=== PATIENT | female | born 1950 | race Caucasian/White ===

== ENCOUNTER → 2016-07-15 | Outpatient (CLI) | payer MEDICARE, BC ==
[2016-07-15 08:59] LABS: Basophils # (A) 0.1 k/uL (0-0.2); Basophils % (A) 2 %; CH 32.5; CHCM 34.2; Eosinophils # (A) 0.1 k/uL (0-0.7); Eosinophils % (A) 2 %; HDW 2.38; HGB 15.5 gm/dL (11.4-16.0); Luc # (Auto) 0.14; Luc % (Auto) 2; Lymphocytes % (A) 25 %; MCH 31.5 pg (25.0-35.0); MCV 95.4 fL (80.0-100.0); Mean Platelet Volume 7.6; Monocytes # (A) 0.5 k/uL (0-1.0); Monocytes % (A) 6 %; Neutrophils # (A) 5.2 k/uL (1.3-7.7); Neutrophils % (A) 64 %; RBC 4.92 m/uL (3.80-5.40); RDW 11.9 % (11.5-15.5); WBC 8.1 k/uL (3.8-10.6); WBC (Perox) 8.55
[2016-07-15 09:20] LABS: ALT 36 U/L (9-52); AST 26 U/L (14-36); Alkaline Phosphatase 77 U/L (38-126); Anion Gap 12 mmol/L; Blood Urea Nitrogen 17 mg/dL (7-17); Calcium 10.3 mg/dL (8.4-10.2); Carbon Dioxide 25 mmol/L (22-30); Chloride 106 mmol/L (98-107); Cholesterol 214 mg/dL (<200); Glucose 91 mg/dL (74-99); HDL Cholesterol 48 mg/dL (40-60); Non-African American GFR(MDRD) >60 (>60 ml/min/1.73 sqM); Potassium 4.8 mmol/L (3.5-5.1); Sodium 143 mmol/L (137-145); Total Bilirubin 0.8 mg/dL (0.2-1.3); Total Protein 7.5 g/dL (6.3-8.2); Triglycerides 340 mg/dL (<150)
[2016-07-15 15:57] LABS: Hemoglobin A1C 5.2 % (4.2-6.1)
== END | disposition home or self-care (01) ==
LOC: LABWHC1 08:25
PROVIDERS: ATTEND Family Medicine
DX: E78.5 Hyperlipidemia, unspecified (principal); E55.9 Vitamin D deficiency, unspecified
CPT/HCPCS: 36415; 80053; 80061; 82306; 83036; 84439; 84443; 85025

== ENCOUNTER → 2016-08-21 | Outpatient (CLI) | payer MEDICARE, BC ==
--- NOTE | 2016-08-22 09:29 | MM ---
Reason for exam: screening (asymptomatic). Last mammogram was performed 1 year ago. History: Patient is postmenopausal. Benign cyst aspiration of the right breast, 1976. Physical Findings: A clinical breast exam by your physician is recommended on an annual basis and results should be correlated with mammographic findings. MG 3D Screening Mammo W/Cad Bilateral CC and MLO view(s) were taken. Prior study comparison: August 20, 2015, bilateral MG screening mammo w CAD. August 17, 2014, bilateral MG screening mammo w CAD. February 11, 2014, right breast MG diagnostic mammo RT w CAD. There are scattered fibroglandular densities. Finding: There are typically benign dystrophic, round calcifications in both breasts. There is no discrete abnormality. ASSESSMENT: Benign, BI-RAD 2 RECOMMENDATION: Routine screening mammogram of both breasts in 1 year.
== END ==
LOC: RADMAMWWP 08:00
PROVIDERS: ATTEND Family Medicine
DX: Z12.31 Encounter for screening mammogram for malignant neoplasm of breast (principal)
CPT/HCPCS: 77063; G0202

== ENCOUNTER → 2016-10-24 | Outpatient (CLI) | payer MEDICARE, BC ==
[2016-10-24 10:35] LABS: CH 32.9; CHCM 33.8; HCT 45.6 % (34.0-46.0); HDW 2.49; HGB 15.6 gm/dL (11.4-16.0); MCH 33.5 pg (25.0-35.0); MCHC 34.2 g/dL (31.0-37.0); MCV 97.9 fL (80.0-100.0); Mean Platelet Volume 8.1; RBC 4.66 m/uL (3.80-5.40); RDW 12.3 % (11.5-15.5); WBC 7.5 k/uL (3.8-10.6)
[2016-10-24 10:36] LABS: INR 1.1 (<1.1); Prothrombin Time 10.8 sec (9.0-12.0)
[2016-10-24 10:37] LABS: Appearance,Urine Cloudy (Clear); Bacteria,Urine Rare /hpf; Bilirubin,Urine Negative (Negative); Glucose,Urine (UA) Negative (Negative); Ketones,Urine Negative (Negative); Leukocyte Esterase,Urine Negative (Negative); Mucus,Urine Rare /hpf; Nitrite,Urine Negative (Negative); PH, Urine 5.5 (5.0-8.0); Particle Count 4167; Protein,Urine Trace (Negative); Specific Gravity,Urine 1.027 (1.001-1.035); Squamous Epithelial Cell,Urine 4 /hpf (0-4); UA Billing (MACRO vs. MICRO) MICRO; Urobilinogen,Urine <2.0 mg/dL (<2.0); WBC,Urine <1 /hpf (0-5)
[2016-10-24 10:39] LABS: ALT 31 U/L (9-52); AST 28 U/L (14-36); Alkaline Phosphatase 71 U/L (38-126); Anion Gap 11 mmol/L; Blood Urea Nitrogen 19 mg/dL (7-17); Calcium 10.2 mg/dL (8.4-10.2); Carbon Dioxide 24 mmol/L (22-30); Chloride 107 mmol/L (98-107); Glucose 79 mg/dL (74-99); Non-African American GFR(MDRD) >60 (>60 ml/min/1.73 sqM); Potassium 4.6 mmol/L (3.5-5.1); Sodium 142 mmol/L (137-145); Total Bilirubin 0.8 mg/dL (0.2-1.3); Total Protein 7.4 g/dL (6.3-8.2)
== END | disposition home or self-care (01) ==
LOC: LABPAT 09:50
PROVIDERS: ATTEND Orthopaedic Surgery Sports Medicine
DX: Z01.818 Encounter for other preprocedural examination (principal)
CPT/HCPCS: 80053; 81001; 85027; 85610; 85730; 87070

== ENCOUNTER 2016-11-16 09:23 | Inpatient (IN) | payer MEDICARE, BC ==
[2016-11-08 15:43] VITALS: BMI 36.6
[~2016-11-16 09:23] MED LIST: ACETAMINOPHEN TAB 500 MG TAB PO ONE; DEXAMETHASONE SOD PHOSPHATE 10 MG/ML 1 ML VIAL IV ONE; HYDROmorphone 1 MG/ML 1 ML SYRINGE IVP PRN; LIDOCAINE 1% 20 ML VIAL (10MG/ML) FOR IV START INTRADERMA PRN; MELOXICAM 7.5 MG TAB PO ONE; ONDANSETRON 4 MG/2 ML VIAL IVP ONE; ROPIVACAINE 246.25 MG, EPINEPHrine 0.5 MG, KETOROLAC 30 MG, cloNIDine HCL/PF 80 MCG, WA... MISCELLANE ONE; SCOPOLAMINE 1.5MG/72HR PATCH TRANSDERM ONE; TRANEXAMIC ACID 1,000 MG in SODIUM CHLORIDE 0.9% 100 ML IVPB ONE; ceFAZolin 2 GM in SODIUM CHLORIDE 0.9% 100 ML IVPB ONE
[2016-11-16] MEDS: LACTATED RINGERS 1,000 ML IV SCH ×4 (10:03→23:57)
[2016-11-16 10:57] LABS: Appearance,Urine Clear (Clear); Bilirubin,Urine Negative (Negative); Glucose,Urine (UA) Negative (Negative); Ketones,Urine Negative (Negative); Leukocyte Esterase,Urine Negative (Negative); Nitrite,Urine Negative (Negative); PH, Urine 5.5 (5.0-8.0); Protein,Urine Negative (Negative); Specific Gravity,Urine 1.022 (1.001-1.035); UA Billing (MACRO vs. MICRO) CHEM; Urobilinogen,Urine <2.0 mg/dL (<2.0)
[2016-11-16] MEDS ORDERED: PROPOFOL 10 MG/ML 20 ML VIAL IV ONE (11:02)
[2016-11-16] MEDS ORDERED: MORPHINE SULFATE (PF) 0.3 MG/0.3 ML SYR ONE (11:02)
[2016-11-16] MEDS ORDERED: LIDOCAINE 1% INJ 10MG/ML (20 ML MDV) ONE (11:02)
[2016-11-16] MEDS ORDERED: SODIUM CHLORIDE 0.9% 100 ML BAG ONE (11:02)
[2016-11-16] MEDS ORDERED: fentaNYL (PF) 50 MCG/ML 2 ML AMP ONE (11:02)
[2016-11-16] MEDS ORDERED: MIDAZOLAM 2 MG/2 ML VIAL ONE (11:02)
[2016-11-16] MEDS ORDERED: TRANEXAMIC ACID 1,000 MG/10 ML VIAL ONE (11:02)
[2016-11-16] MEDS ORDERED: ONDANSETRON 4 MG/2 ML VIAL ONE (11:02)
[2016-11-16] MEDS ORDERED: MAGNESIUM HYDROXIDE 2,400 MG/10 ML CUP PO PRN (11:26)
[2016-11-16] MEDS ORDERED: ONDANSETRON 4 MG/2 ML VIAL IVP PRN ×2 (11:26→14:14)
[2016-11-16] MEDS ORDERED: NA PHOS,M-B/NA PHOS,DI-BA 133 ML ENEMA RECTAL PRN (11:26)
[2016-11-16] MEDS ORDERED: HYDROcodone/APAP 7.5-325MG 1 EACH TAB PO PRN (11:26)
[2016-11-16] MEDS ORDERED: HYDROmorphone 1 MG/ML 1 ML SYRINGE IVP PRN ×3 (11:26)
[2016-11-16] MEDS ORDERED: TEMAZEPAM 15 MG CAP PO PRN (11:26)
[2016-11-16] MEDS ORDERED: BISACODYL 10 MG SUPP RECTAL PRN (11:26)
[2016-11-16] MEDS ORDERED: hydrOXYzine PAMOATE 25 MG CAP PO PRN (11:26)
[2016-11-16] MEDS ORDERED: ACETAMINOPHEN TAB 325 MG TAB PO PRN (11:26)
[2016-11-16] MEDS ORDERED: DIAZEPAM 5 MG TAB PO PRN (11:26)
[2016-11-16] MEDS ORDERED: NALOXONE 0.4 MG/ML 1 ML VIAL IV PRN ×2 (11:26→14:14)
[2016-11-16] MEDS ORDERED: ceFAZolin 3,000 MG in SODIUM CHLORIDE 0.9% IRRIGATIO 3,000 ML IRRIGATION ONE (11:42)
[2016-11-16] MEDS ORDERED: LACTATED RINGERS 1,000 ML IV ONE ×3 (11:55→13:02)
--- NOTE | 2016-11-16 13:54 | XR ---
EXAMINATION TYPE: XR knee limited RT DATE OF EXAM ORDERED: 11/16/2016 HISTORY: Right knee arthroplasty. COMPARISON: None. FINDINGS: A right knee arthroplasty has been performed. Prosthetic elements appear in good position. There is subcutaneous and intra-articular air. IMPRESSION: STATUS POST RIGHT ARTHROPLASTY.
[2016-11-16] MEDS ORDERED: MORPHINE SULFATE 4 MG/ML SYRINGE IVP PRN ×2 (14:14→23:13)
[2016-11-16] MEDS: diphenhydrAMINE 50 MG/ML 1 ML VIAL IVP PRN ×2 (17:42→23:03)
[2016-11-16] MEDS: ceFAZolin 2 GM in SODIUM CHLORIDE 0.9% 100 ML IVPB SCH (17:42)
[2016-11-16] MEDS ORDERED: WARFARIN 5 MG TAB PO ONE (18:00)
[2016-11-16] MEDS ORDERED: SENNOSIDES-DOCUSATE SODIUM 1 EACH TAB PO SCH (21:00)
[2016-11-16] MEDS ORDERED: ASPIRIN 325 MG TAB PO SCH (21:00)
[2016-11-16] MEDS ORDERED: MECLIZINE 12.5 MG TAB PO PRN (22:48)
[2016-11-16] MEDS ORDERED: ARTIFICIAL TEARS-HYPROMELLOSE DROPS 15 ML BTL BOTH EYES PRN (22:48)
[2016-11-16] MEDS ORDERED: MORPHINE SULFATE 2 MG/ML SYRINGE IVP PRN (22:58)
[2016-11-16] MEDS ORDERED: ATORVASTATIN 20 MG TAB PO SCH (23:00)
[2016-11-16] MEDS ORDERED: GABAPENTIN 300 MG CAP PO SCH (23:00)
[2016-11-16] MEDS ORDERED: PANTOPRAZOLE 40 MG TABLET PO SCH (23:00)
[2016-11-16] MEDS ORDERED: NADOLOL 20 MG TAB PO SCH (23:00)
[2016-11-17] MEDS: ceFAZolin 2 GM in SODIUM CHLORIDE 0.9% 100 ML IVPB SCH (03:15)
[2016-11-17] MEDS: HYDROcodone/APAP 7.5-325MG 1 EACH TAB PO PRN ×2 (05:42→11:02)
[2016-11-17] MEDS: LACTATED RINGERS 1,000 ML IV SCH (06:15)
[2016-11-17 07:38] LABS: INR 1.9 (<1.1); Prothrombin Time 18.7 sec (9.0-12.0)
--- NOTE | 2016-11-17 07:48 | OP ---
DATE OF SERVICE: 11/16/2016 SURGEON: KEL BELLO MD PATIENT SERVICES MANAGER: Brady Verde PA-C. PREOPERATIVE DIAGNOSIS: Right knee osteoarthrosis. POSTOPERATIVE DIAGNOSIS: Right knee osteoarthrosis. OPERATION: Right total knee arthroplasty. ANESTHESIA: Spinal with sedation. ESTIMATED BLOOD LOSS: 100 mL. Tourniquet time: 40 minutes at 250 mmHg. SPECIMENS REMOVED: COMPLICATIONS: None apparent. DRAINS: None. DISPOSITION: Postanesthesia care. INDICATIONS: Rosa Isela is a very pleasant 66-year-old female with long-standing history of right knee pain. History and physical examination are consistent with advanced right knee osteoarthrosis. She has been through significant nonoperative management up to this point. Further treatment options were discussed and she has decided to go forward with right total knee arthroplasty. The risks of the procedure were discussed with her in detail. These risks include, but are not limited to risk of infection, nerve damage, bleeding, pain, and a small risk of deep vein thrombosis, which could lead to fatal pulmonary embolism. There is also a risk of loosening of the implant, which could require revision operation. The patient understands these risks. All of her questions were answered to her satisfaction. Appropriate informed consent was obtained. DESCRIPTION OF PROCEDURE: Patient is identified in the preoperative holding area. Surgical site was marked by both the patient and myself. She was given 2 grams of Ancef IV for prophylactic purposes. Purchase then transferred to the operative suite where she was placed supine on the operating room table. Spinal anesthetic was then administered and dosed per the anesthesia department without apparent complication. Examination under anesthesia was then performed. Patient had full extension. She had 110 degrees of flexion. The medial collateral ligament, lateral collateral ligament and posterior cruciate ligaments were stable. Tourniquet was then placed high on the right upper thigh, well-padded in preparation for surgery. The patient's right lower extremity was then prepped and draped usual sterile fashion. Standard surgical pause was then undertaken to ensure that we were operating on correct site and that appropriate preoperative antibiotics had been given. All staff in the room were in agreement and we proceeded. The outlines of the patella were marked with surgical marked with a surgical pen. A planned 12 cm vertical incision centered over the patella was marked with a surgical pen. The leg was then exsanguinated with an Esmarch dressing. The knee was then flexed and the tourniquet was inflated to 250 mmHg. Total tourniquet time for the procedure was 40 minutes. Incision was then made with a 10 blade scalpel. Dissection was carried down sharply to the overlying fascia. Great care was taken to minimize the skin flaps. The knee was then exposed using a standard medial parapatellar approach. A small cuff of quadriceps tendon was then left for suturing. She was in a bit of valgus preoperatively. A very minimal medial release was then made. Just enough to up for placement of the retractors were put. The medial meniscus was then excised as well. The lateral meniscus was also released anteriorly. The leg was then externally rotated externally rotated. The patella was everted and the knee was flexed. Retractors were then placed to protect the collateral ligaments. I then proceeded to remove the infrapatellar fat pad. This was excised sharply tangentially, with the fibers of the patellar tendon. I then proceeded to remove the peripheral osteophytes. This was done with a rongeur. I then proceeded with the distal femoral resection. She did have near full extension. A planned 9 mm resection was then done. The femoral canal was then entered in midline of the femur approximately 10 mm anterior to the origin of the posterior cruciate ligament. The ayleen was then advanced down the center of the femur and placed intramedullary. Based on preoperative radiographs, the angle between the anatomic and mechanical axis of the femur was approximately 4 to 5 degrees. The valgus angle of the distal femoral cutting guide was then set at 4 degrees for the right knee. Distal femoral cutting guide was then advanced over the intramedullary ayleen. This was seated firmly against the femur. I then, as mentioned, planned to take 9 mm off the distal femur. The cutting block was then secured onto the femur with pins. Jig was then removed. The distal femoral cut was made through the slot of the block. The pins were then removed. The distal femoral cutting block was removed. The accuracy of the distal femoral cuts was checked with 2 flat bars. I then proceeded with femoral sizing. The posterior referencing sizing guide was held firmly against the resected distal surface of the femur. Posterior condyles were resting on the posterior plane of the guide. The sizing stylus was then advanced and placed onto the anterior femur. The size was measured at a size 4. I then assessed for femoral rotation. Plan was for 3 degrees of external rotation. The 3 degrees of external placed rotation was placed onto the jig. These holes were then marked. I then confirmed the rotation by 3 separate methods. This was done using epicondylar axis as well as Whitesides line and posterior referencing. It was deemed that the external rotation was proper. I then went forward placing the femoral cutting block. This was placed over the previously placed pinholes. Robson wing was then placed onto the anterior slots to ensure that we would not notch the anterior femur with the anterior femoral cut. I then proceeded with the anterior femoral cut. This was flush with the anterior cortex of the femur. Posterior cuts were then made followed by the anterior chamfer cut and then the posterior chamfer cut. The cutting block was then removed. Throughout the resection, the collateral ligaments were protected with retractors. I then placed a trial size 4 femur. It fit very nice medial to lateral and fit flush with the distal end of the femur. The drill holes were then made. I then proceeded with the tibial cut planned for a cruciate-retaining knee. The guide was then placed and set for varus valgus and for slope. The height was set for an approximately 2 mm resection from the lateral tibial plateau, which was the lower side. I was happy with the alignment and the amount of resection. The cutting block was then pinned to the proximal tibia. The alignment ayleen was removed and the proximal tibia was resected with the reciprocating saw. Again, this was done with retractors, protecting the collateral ligaments as well as posterior cruciate ligament. I then proceeded to evaluate the flexion and extension gaps. A 10 mm block was placed. Flexion and extension gaps were equal. I then proceeded with resection of the posterior osteophytes. She had very minimal posterior osteophytes. This was done with a curved osteotome. This resected the posterior osteophytes and posterior capsule stripping was also done off the posterior aspect of the femur at this time. The osteophytes were then removed. I then proceeded with resection of the patella. The thickness of the patella was measured using the caliper. The thickness was 22 mm. The thickness of the anticipated patellar dome was taken into account. Resection was then performed and confirmed to be equal in 4 quadrants using the caliper approximately 14 mm of bone remained. After the resection, a straight 29 x 9 standard patellar trial was then placed. Holes were then drilled and trial was then placed. I then proceeded with sizing the tibial plate. A size 3 tibial plate fit very nicely. I then placed a trial. Femur, the tibial tray and patellar button. A 10 mm trial tibial insert was also placed. The components fit very nicely. She had full flexion and extension. The extension and flexion gaps were equal and stable to both varus and valgus stress. The patellar tracked appropriately. The tibial tray rotation was marked with a Bovie. This was externally rotated properly. I then proceeded with tibial preparation. I first drilled femoral holes and removed femoral component. The tibial tray was then set for proper external rotation as well as medial and lateral placement onto the tibial. It was then pinned into place. I then proceeded with punching the keel. I then decided to proceed with cementing al components. The knee was thoroughly irrigated with sterile saline solution via pulse lavage. The lateral geniculate artery was identified and cauterized. All blood was removed from the bone of the tibia, femur, patella with pulse lavage. I then proceeded with cementing. Two packs of antibiotic bone cement were created on the back table by the neurosurgical physician assistant. I then proceeded with cementing of the tibia first. The cement was impacted in the keel as well as deeply seated into the bone. A second coat of cement was then placed. The tibia was then impacted and placed. Excess cement was removed with Clinton's and jokers. I then proceed with cementing the femoral component. The femoral component was also cemented using standard technique. Excess cement was removed. A 9 mm trial insert was then placed into the knee. It was brought into full extension with ( ) place until the cement had hardened. Patellar component was then cemented. This was held firmly with compressive device until the cement had dried. Once the cement had dried, the knee was taken out of extension. I trialed the knee with 9 mm insert. Flexion, extension gaps were appropriate. The knee was stable. It came in full extension. I decided to go forward with a 9 mm cross link cruciate retaining tibial insert. Polyethylene was then placed on the tibial tray and locked. The knee was then reduced. The knee was again further irrigated with sterile saline solution with antibiotic added. The tourniquet was then deflated. The total tourniquet time for the procedure was 40 minutes at 250 mmHg. Final components were a [employer] Oxinium size 4 cruciate-retaining femoral component, a size 3 tibial tray, a 9 mm cruciate-retaining polyethylene insert and a 29 x 9 mm patella. I then proceeded with closure. Again, the knee was thoroughly irrigated. The quadriceps tendon and the medial retinaculum were reapproximated with #2 Ethibond suture. The extensor mechanism was then closed with running #2 Quill suture. Subcutaneous tissues were then closed with 2-0 Vicryl interrupted suture. Skin was closed with a running 3-0 Quill suture. Dermabond was applied to the incision. Sterile compressive dressings were then applied. All sponge and needle counts were deemed correct prior to closure. The patient tolerated the procedure without apparent complication. She was transferred to recovery room in stable condition.
[2016-11-17 07:50] LABS: Basophils % (A) 0 %; CH 33.1; CHCM 33.5; Eosinophils % (A) 0 %; HCT 36.1 % (34.0-46.0); HDW 2.28; Luc # (Auto) 0.25; Luc % (Auto) 2; Lymphocytes # (A) 2.9 k/uL (1.0-4.8); Lymphocytes % (A) 24 %; MCH 32.6 pg (25.0-35.0); MCHC 32.9 g/dL (31.0-37.0); MCV 99.2 fL (80.0-100.0); Mean Platelet Volume 7.2; Monocytes # (A) 0.9 k/uL (0-1.0); Monocytes % (A) 8 %; Neutrophils # (A) 7.9 k/uL (1.3-7.7); Neutrophils % (A) 66 %; RBC 3.64 m/uL (3.80-5.40); RDW 12.7 % (11.5-15.5); WBC (Perox) 12.57
[2016-11-17 08:04] LABS: HGB 11.9 gm/dL (11.4-16.0)
--- NOTE | 2016-11-17 08:26 | P.CONS ---
History of Present Illness - Reason for Consult Consult date: 11/17/16 Requesting physician: Carlos Kaplan - Chief Complaint Knee DJD. - History of Present Illness This is a consult note on a 66-year-old white female, who is very well-known to our practice with underlying history of hypertension and fibromyalgia who is essentially postop day #1 for right knee arthroplasty. The patient is doing quite well. No significant chest pain or shortness of breath. Blood pressure is nominal. No fever or chills are stated. Medications were reconciled. Review of Systems Constitutional: Denies chills, Denies fever Eyes: denies blurred vision, denies pain Ears, nose, mouth and throat: Denies headache, Denies sore throat Cardiovascular: Denies chest pain, Denies shortness of breath Respiratory: Denies cough Gastrointestinal: Denies abdominal pain, Denies diarrhea, Denies nausea, Denies vomiting Musculoskeletal: Reports as per HPI Musculoskeletal: right: knee pain Integumentary: Denies pruritus, Denies rash Neurological: Denies numbness, Denies weakness Psychiatric: Denies anxiety, Denies depression Past Medical History Past Medical History: Fibromyalgia, GERD/Reflux, Osteoarthritis (OA) Additional Past Medical History / Comment(s): OCCASIONAL VERTIGO, MITRAL VALVE PROLAPSE (PRE-MEDICATES FOR DENTAL PROCEDURES), ENVIRONMENTAL ALLERGIES, IBS, DIVERTICULOSIS, BACK PAIN WITH EPIDURAL INJECTIONS (LAST APR 2016), OVER-ACTIVE BLADDER. , DRY EYES., USES CANE PRN., STATES PRESCRIPTION FOR BACTRIM FOR BACTERIA IN URINE FROM DR KAPLAN'S OFFICE History of Any Multi-Drug Resistant Organisms: None Reported Past Surgical History: Appendectomy, Section, Hysterectomy, Orthopedic Surgery Additional Past Surgical History / Comment(s): VAGINAL CYST, D & C , COURTNEY, SHAWNEE ROTATOR CUFF, TRABECULOPLASTY EYE SURGERY FOR GLAUCOMA, SHAWNEE CATARACTS & LAZER EYE SURGERY , LEFT TRIGGER THUMB, ARTHROSCOPY LEFT KNEE, EYE LID PTOSIS SURGERY , COLONOSCOPY , EPIDURAL INJECTIONS AND RADIOFREQUENCY BACK PROCEDURES. Past Anesthesia/Blood Transfusion Reactions: Motion Sickness, Postoperative Nausea & Vomiting (PONV) Past Psychological History: No Psychological Hx Reported Smoking Status: Never smoker Past Alcohol Use History: Rare Past Drug Use History: None Reported - Past Family History Daughter(s) Family Medical History: Cancer Additional Family Medical History / Comment(s): MELANOMA Medications and Allergies Home Medications Medication Instructions Recorded Confirmed Type Ascorbic Acid [Vitamin C] 500 mg PO DAILY 11/08/16 11/16/16 History Atorvastatin [Lipitor] 20 mg PO HS 11/08/16 11/16/16 History Morales/D3/Mag11/Zinc/Commissary Officer/Damien/Bor 1 tab PO DAILY 11/08/16 11/16/16 History [Caltrate 600+D Plus Tablet] Carisoprodol [Soma] 175 mg PO TID 11/08/16 11/16/16 History Cetirizine HCl [Zyrtec] 10 mg PO DAILY 11/08/16 11/16/16 History Cholecalciferol [Vitamin D3] 5,000 unit PO DAILY 11/08/16 11/16/16 History FLUoxetine HCL [PROzac] 20 mg PO DAILY 11/08/16 11/16/16 History Fluticasone Nasal [place] [Flonase 1 spray EA NOSTRIL DAILY 11/08/16 11/16/16 History Nasal [place]] Gabapentin [Neurontin] 300 mg PO HS 11/08/16 11/16/16 History HYDROcodone/APAP 7.5-325MG [[place] 0.5 tab PO Q6HR PRN 11/08/16 11/16/16 History 7.5-325] Ibuprofen [Motrin] 800 mg PO BID PRN 11/08/16 11/16/16 History Lubricant Eye Drops 1 drop BOTH EYES BID PRN 11/08/16 11/16/16 History Meclizine [Antivert] 12.5 mg PO BID PRN 11/08/16 11/16/16 History Menthol [Biofreeze] 1 applic TOPICAL DAILY PRN 11/08/16 11/16/16 History Multivit-Min/FA/Lycopen/Lutein 1 tab PO DAILY 11/08/16 11/16/16 History [Centrum Silver Tablet] Nadolol [Corgard] 20 mg PO HS 11/08/16 11/16/16 History Omeprazole [PriLOSEC] 20 mg PO HS 11/08/16 11/16/16 History Vitamin E (Dl,Tocopheryl Acet) 400 unit PO DAILY 11/08/16 11/16/16 History [Vitamin E] Warfarin [Coumadin] 2.5 mg PO DAILY 11/16/16 11/16/16 History Warfarin [Coumadin] 7.5 mg PO ONCE 11/16/16 11/16/16 History Allergies Allergy/AdvReac Type Severity Reaction Status Date / Time adhesive Allergy Unknown Red Verified 11/16/16 09:42 irritated skin with ekg electrodes. adhesive tape Allergy Unknown Red Verified 11/16/16 09:42 irritated skin nickel Allergy Unknown Rash/Hives Verified 11/16/16 09:42 strawberry Allergy Unknown Tongue and Verified 11/16/16 09:42 lips feel picky titanium Allergy Unknown Rash/Hives Verified 11/16/16 09:42 Physical Exam Vitals: Vital Signs Temp Pulse Pulse Pulse Resp BP Pulse Ox 11/17/16 02:51 97.4 F L 80 16 126/58 97 11/16/16 23:28 79 126/76 11/16/16 20:15 98.1 F 78 16 129/74 94 L 11/16/16 19:36 16 11/16/16 16:15 74 148/80 11/16/16 16:00 66 144/84 11/16/16 15:45 67 143/83 11/16/16 15:30 72 155/125 11/16/16 15:15 62 146/73 11/16/16 15:00 64 148/82 11/16/16 14:45 67 141/85 11/16/16 14:30 62 136/91 11/16/16 14:15 97.2 F L 62 16 140/90 94 L 11/16/16 14:14 94 L 11/16/16 14:00 56 L 18 143/73 93 L 11/16/16 13:45 59 L 18 143/70 95 11/16/16 13:30 61 18 147/72 97 11/16/16 13:24 97.3 F L 67 12 147/72 97 11/16/16 09:57 98.3 F 70 16 187/91 96 Intake and Output 11/16/16 11/17/16 11/17/16 22:59 06:59 14:59 Intake Total 400 100 Output Total 500 100 Balance 400 -400 -100 Intake: IV 400 100 Lactated Ringers 1,000 ml 400 @ 100 mls/hr IV .Q10H ALEXSANDRA Rx#:[id number] ceFAZolin 2 gm In Sodium 100 Chloride 0.9% 100 ml @ 100 mls/hr IVPB Q8H ALEXSANDRA Rx#:[id number] Output: Urine 500 100 Uretheral ([place]) 100 Other: Voiding Method Indwelling Catheter - Constitutional General appearance: obese - EENT Eyes: EOMI - Neck Neck: no lymphadenopathy - Respiratory Respiratory: bilateral: CTA - Cardiovascular Rhythm: regular Heart sounds: normal: S1, S2 - Gastrointestinal General gastrointestinal: soft, no tenderness - Integumentary Integumentary: no cellulitis - Neurologic Neurologic: CNII-XII intact - Psychiatric Psychiatric: A&O x's 3, appropriate affect Results CBC & Chem 7: 11/17/16 07:02 Labs: Abnormal Lab Results - Last 24 Hours (Table) 11/17/16 11/17/16 Range/Units 07:02 07:02 WBC 12.0 H (3.8-10.6) k/uL RBC 3.64 L (3.80-5.40) m/uL Neutrophils # 7.9 H (1.3-7.7) k/uL PT 18.7 H (9.0-12.0) sec Assessment and Plan (1) Osteoarthritis of right knee Status: Acute (2) Fibromyalgia Status: Acute (3) Hypertension Status: Acute Plan: Reconcile home medications. Watch vital signs closely. Anticoagulation and pain control via surgery. Discharge when cleared by surgery. Anticipate discharge in next [address] Garcia's group will be covering for the weekend. Time with Patient: Less than 30
--- NOTE | 2016-11-17 08:41 | P.PN ---
Progress Note - Text Date: 11-17-16 Time: 712 The patient is status post, total right knee arthroplasty Vital signs stable VAS: 3-10 The patient incurred some minimal itching yesterday, this itching is now subsiding. Pain meds to be managed by service.
[2016-11-17] MEDS ORDERED: ASCORBIC ACID 500 MG TAB PO SCH (09:00)
[2016-11-17] MEDS ORDERED: CARISOPRODOL 350 MG TAB PO SCH (09:00)
[2016-11-17] MEDS ORDERED: LORATADINE 10 MG TAB PO SCH (09:00)
[2016-11-17] MEDS ORDERED: CALCIUM CARB-VIT D 500MG-200UN 1 EACH TAB PO SCH (09:00)
[2016-11-17] MEDS ORDERED: FLUTICASONE 50MCG/SPRAY NASAL 16GM EA NOSTRIL SCH (09:00)
[2016-11-17] MEDS ORDERED: VITAMIN E (DL,TOCOPHERYL ACET) 400 UNIT CAP PO SCH (09:00)
[2016-11-17] MEDS ORDERED: CHOLECALCIFEROL 1,000 UNIT TAB PO SCH (09:00)
[2016-11-17] MEDS ORDERED: FLUoxetine HCL 20 MG CAP PO SCH (09:00)
[2016-11-17] MEDS ORDERED: NON-FORMULARY DRUG (Multivit-Min/Fa/Lycopen/Lutein [Centrum Silver Tablet] 1 TAB) PO SCH (09:00)
[2016-11-17 10:14] VITALS: BP 116/60; PULSE 63; RESP 14; TEMP 97.6
--- NOTE | 2016-11-17 11:28 | P.DS ---
Providers Date of admission: 11/16/16 09:23 Expected date of discharge: 11/17/16 Attending physician: Carlos Kaplan Consults: 11/16/16 11:30 Consult Physician Routine Consulting Provider: Yunior Melendez Consult Reason/Comments: post op medical management Do you want consulting provider notified?: Yes Primary care physician: Yunior Melendez - Discharge Diagnosis(es) (1) Osteoarthritis of right knee Patient was admitted to the OR on 11/16/2016 to undergo right total knee arthroplasty per Dr. Kaplan. She had failed conservative measures as an outpatient and desired to proceed with elective surgery after given informed consent. She underwent the above procedure which she tolerated well without complication. Her postoperative hospital course has remained without complication. On day of discharge she is afebrile, vital signs stable, labs within acceptable ranges, wound is benign, neurovascular status intact with motor and sensation throughout the right lower extremity, calf is soft and nontender, abdomen is soft and nontender, 2+ dorsalis pedis pulse and less than 2 second cap refill is present. She denies any new complaints, tolerating by mouth meds and diet, voiding without difficulty and positive flatus. Review of systems is negative for fever, chills, chest pain, shortness breath, nausea, vomiting, dizziness, headaches, slurred speech, abdominal pain, calf pain, numbness, tingling or other. Current Visit: Yes Status: Acute Priority: Medium Procedures: Right total knee arthroplasty Patient Condition at Discharge: Good Plan - Discharge Summary New Discharge Prescriptions: New Docusate [Colace] 100 mg PO BID #60 capsule HYDROcodone/APAP 7.5-325MG [[place] 7.5-325] 1 - 2 each PO Q6HR PRN #90 tab PRN Reason: Pain No Action Cholecalciferol [Vitamin D3] 5,000 unit PO DAILY Ascorbic Acid [Vitamin C] 500 mg PO DAILY Vitamin E (Dl,Tocopheryl Acet) [Vitamin E] 400 unit PO DAILY Omeprazole [PriLOSEC] 20 mg PO HS Nadolol [Corgard] 20 mg PO HS Fluticasone Nasal [place] [Flonase Nasal [place]] 1 spray EA NOSTRIL DAILY FLUoxetine HCL [PROzac] 20 mg PO DAILY Cetirizine HCl [Zyrtec] 10 mg PO DAILY Atorvastatin [Lipitor] 20 mg PO HS Meclizine [Antivert] 12.5 mg PO BID PRN PRN Reason: Vertigo Gabapentin [Neurontin] 300 mg PO HS Multivit-Min/FA/Lycopen/Lutein [Centrum Silver Tablet] 1 tab PO DAILY Menthol [Biofreeze] 1 applic TOPICAL DAILY PRN PRN Reason: Pain Lubricant Eye Drops 1 drop BOTH EYES BID PRN PRN Reason: Dry Eye(S) Ibuprofen [Motrin] 800 mg PO BID PRN PRN Reason: Pain Morales/D3/Mag11/Zinc/Communication Spec/Damien/Bor [Caltrate 600+D Plus Tablet] 1 tab PO DAILY Carisoprodol [Soma] 175 mg PO TID HYDROcodone/APAP 7.5-325MG [[place] 7.5-325] 0.5 tab PO Q6HR PRN PRN Reason: Pain Warfarin [Coumadin] 7.5 mg PO ONCE Warfarin [Coumadin] 2.5 mg PO DAILY Discharge Medication List Ascorbic Acid [Vitamin C] 500 mg PO DAILY 11/08/16 [History] Atorvastatin [Lipitor] 20 mg PO HS 11/08/16 [History] Morales/D3/Mag11/Zinc/Communication Spec/Damien/Bor [Caltrate 600+D Plus Tablet] 1 tab PO DAILY 11/08 [History] Carisoprodol [Soma] 175 mg PO TID 11/08/16 [History] Cetirizine HCl [Zyrtec] 10 mg PO DAILY 11/08/16 [History] Cholecalciferol [Vitamin D3] 5,000 unit PO DAILY 11/08/16 [History] FLUoxetine HCL [PROzac] 20 mg PO DAILY 11/08/16 [History] Fluticasone Nasal [place] [Flonase Nasal [place]] 1 spray EA NOSTRIL DAILY 11/08/16 [History] Gabapentin [Neurontin] 300 mg PO HS 11/08/16 [History] HYDROcodone/APAP 7.5-325MG [[place] 7.5-325] 0.5 tab PO Q6HR PRN 11/08/16 [History ] Ibuprofen [Motrin] 800 mg PO BID PRN 11/08/16 [History] Lubricant Eye Drops 1 drop BOTH EYES BID PRN 11/08/16 [History] Meclizine [Antivert] 12.5 mg PO BID PRN 11/08/16 [History] Menthol [Biofreeze] 1 applic TOPICAL DAILY PRN 11/08/16 [History] Multivit-Min/FA/Lycopen/Lutein [Centrum Silver Tablet] 1 tab PO DAILY 11/08/16 [ History] Nadolol [Corgard] 20 mg PO HS 11/08/16 [History] Omeprazole [PriLOSEC] 20 mg PO HS 11/08/16 [History] Vitamin E (Dl,Tocopheryl Acet) [Vitamin E] 400 unit PO DAILY 11/08/16 [History] Warfarin [Coumadin] 2.5 mg PO DAILY 11/16/16 [History] Warfarin [Coumadin] 7.5 mg PO ONCE 11/16/16 [History] Docusate [Colace] 100 mg PO BID #60 capsule 11/17/16 [Rx] HYDROcodone/APAP 7.5-325MG [[place] 7.5-325] 1 - 2 each PO Q6HR PRN #90 tab [Rx] Follow up Appointment(s)/Referral(s): Carlos Kaplan MD [STAFF PHYSICIAN] - 10 Days Ambulatory/Diagnostic Orders: Prothrombin Time INR [LAB.AMB] Location: Determined By Patient Activity/Diet/Wound Care/Special Instructions: Keep wound clean and dry May shower in 48 hours Weight-bear as tolerated Follow up with Dr. Kaplan in office Take meds as directed Discharge Disposition: HOME WITH HOME HEALTH SERVICES
[2016-11-17] MEDS ORDERED: MULTIVITAMINS, THERA 1 EACH TAB PO SCH (12:00)
[2016-11-17] MEDS ORDERED: WARFARIN 5 MG TAB PO ONE (18:00)
== END 2016-11-17 13:42 | disposition home health service (06) | DRG 470 ==
LOC: 2ORMAIN 09:23 → 3SUR 13:24
PROVIDERS: ADMIT Orthopaedic Surgery Sports Medicine; ATTEND Orthopaedic Surgery Sports Medicine
PROC: 0SRC0J9 Replacement of Right Knee Joint with Synthetic Substitute, Cemented, Open Approach (ICD-10-PCS; principal; 2016-11-16 11:00)
DX: M17.11 Unilateral primary osteoarthritis, right knee (principal); M06.9 Rheumatoid arthritis, unspecified; I10 Essential (primary) hypertension; H40.9 Unspecified glaucoma; I34.1 Nonrheumatic mitral (valve) prolapse; K21.9 Gastro-esophageal reflux disease without esophagitis; K58.9 Irritable bowel syndrome, unspecified; M79.7 Fibromyalgia; N32.81 Overactive bladder; Z79.01 Long term (current) use of anticoagulants; Z79.899 Other long term (current) drug therapy; E78.5 Hyperlipidemia, unspecified; M85.80 Other specified disorders of bone density and structure, unspecified site; H04.129 Dry eye syndrome of unspecified lacrimal gland
CPT/HCPCS: 81003; 85025; 85610; 88300

== ENCOUNTER → 2016-12-05 | Outpatient (CLI) | payer MEDICARE, BC ==
[2016-12-05 11:17] LABS: INR 1.5 (<1.1); Prothrombin Time 14.8 sec (9.0-12.0)
== END | disposition home or self-care (01) ==
LOC: LABWHC1 10:21
PROVIDERS: ATTEND Physician Assistant
DX: Z51.81 Encounter for therapeutic drug level monitoring (principal); Z79.01 Long term (current) use of anticoagulants
CPT/HCPCS: 36415; 85610

== ENCOUNTER → 2017-08-11 | Outpatient (CLI) | payer MEDICARE, BC ==
[2017-08-11 09:12] LABS: HCT 45.2 % (34.0-46.0); HGB 14.6 gm/dL (11.4-16.0); MCH 31.3 pg (25.0-35.0); MCHC 32.2 g/dL (31.0-37.0); MCV 97.1 fL (80.0-100.0); Mean Platelet Volume 6.9; Platelet Count 318 k/uL (150-450); RBC 4.65 m/uL (3.80-5.40); RDW 12.1 % (11.5-15.5); WBC 7.4 k/uL (3.8-10.6)
[2017-08-11 09:35] LABS: ALT 35 U/L (9-52); AST 27 U/L (14-36); Albumin 4.2 g/dL (3.5-5.0); Alkaline Phosphatase 66 U/L (38-126); Anion Gap 10 mmol/L; Blood Urea Nitrogen 17 mg/dL (7-17); Calcium 10.2 mg/dL (8.4-10.2); Carbon Dioxide 28 mmol/L (22-30); Chloride 104 mmol/L (98-107); Cholesterol 231 mg/dL (<200); Glucose 88 mg/dL (74-99); HDL Cholesterol 54 mg/dL (40-60); LDL Cholesterol,Calculated 127 mg/dL (0-99); Potassium 4.8 mmol/L (3.5-5.1); Sodium 142 mmol/L (137-145); Total Bilirubin 0.8 mg/dL (0.2-1.3); Total Protein 6.9 g/dL (6.3-8.2); Triglycerides 248 mg/dL (<150)
[2017-08-11 09:49] LABS: T4, Free (Free Thyroxine) 1.27 ng/dL (0.78-2.19)
== END | disposition home or self-care (01) ==
LOC: LABWHC1 08:28
PROVIDERS: ATTEND Family Medicine
DX: E78.5 Hyperlipidemia, unspecified (principal)
CPT/HCPCS: 36415; 80053; 80061; 84439; 84443; 85027

== ENCOUNTER → 2017-08-31 | Outpatient (CLI) | payer MEDICARE, BC ==
--- NOTE | 2017-09-03 13:19 | MM ---
Reason for exam: screening (asymptomatic). Last mammogram was performed 1 year ago. History: Patient is postmenopausal. Benign cyst aspiration of the right breast, 1976. Physical Findings: A clinical breast exam by your physician is recommended on an annual basis and results should be correlated with mammographic findings. MG 3D Screening Mammo W/Cad Bilateral CC and MLO view(s) were taken. Prior study comparison: August 21, 2016, bilateral MG 3d screening mammo w/cad. August 20, 2015, bilateral MG screening mammo w CAD. There are scattered fibroglandular densities. Finding: There are typically benign calcifications in both breasts. No suspicious abnormality. No significant changes in finding since August 21, 2016. ASSESSMENT: Benign, BI-RAD 2 RECOMMENDATION: Routine screening mammogram of both breasts in 1 year.
== END | disposition home or self-care (01) ==
LOC: RADMAMWWP 07:44
PROVIDERS: ATTEND Family Medicine
DX: Z12.31 Encounter for screening mammogram for malignant neoplasm of breast (principal)
CPT/HCPCS: 77063; 77067

== ENCOUNTER → 2018-06-20 | Outpatient (CLI) | payer MEDICARE ==
[2018-06-20 09:15] LABS: Basophils # (A) 0.1 k/uL (0-0.2); Basophils % (A) 1 %; Eosinophils # (A) 0.1 k/uL (0-0.7); Eosinophils % (A) 2 %; HGB 14.8 gm/dL (11.4-16.0); Lymphocytes # (A) 2.1 k/uL (1.0-4.8); Lymphocytes % (A) 33 %; MCH 32.5 pg (25.0-35.0); MCHC 33.6 g/dL (31.0-37.0); MCV 96.9 fL (80.0-100.0); Mean Platelet Volume 7.5; Monocytes # (A) 0.5 k/uL (0-1.0); Monocytes % (A) 8 %; Neutrophils # (A) 3.3 k/uL (1.3-7.7); Neutrophils % (A) 52 %; Platelet Count 261 k/uL (150-450); RBC 4.53 m/uL (3.80-5.40); RDW 12.2 % (11.5-15.5); WBC 6.2 k/uL (3.8-10.6)
[2018-06-20 17:15] LABS: Albumin 4.3 g/dL (3.80-4.90); Albumin/Globulin Ratio 2.39 (1.20-2.10); Calcium 9.6 mg/dL (8.7-10.3); Globulin 1.8 g/dL (1.6-3.3); LDL Cholesterol,Calculated 109.2 mg/dL (0.0-131.0); Potassium 4.3 mmol/L (3.5-5.5); Total Bilirubin 0.5 mg/dL (0.2-1.2); Total Protein 6.1 g/dL (6.2-8.2); VLDL Calculation 59.8 mg/dL (5.00-40.00)
== END ==
LOC: LABWHC1 07:41
PROVIDERS: ATTEND Family Medicine
DX: E78.5 Hyperlipidemia, unspecified (principal); M06.9 Rheumatoid arthritis, unspecified; K21.9 Gastro-esophageal reflux disease without esophagitis; Z79.899 Other long term (current) drug therapy
CPT/HCPCS: 36415; 80053; 80061; 82306; 85025

== ENCOUNTER → 2018-09-02 | Outpatient (CLI) | payer MEDICARE ==
--- NOTE | 2018-09-03 11:09 | MM ---
Reason for exam: screening (asymptomatic). Last mammogram was performed 1 year ago. History: Patient is postmenopausal. Benign cyst aspiration of the right breast, 1976. Physical Findings: A clinical breast exam by your physician is recommended on an annual basis and results should be correlated with mammographic findings. MG 3D Screening Mammo W/Cad Bilateral CC and MLO view(s) were taken. Prior study comparison: August 31, 2017, bilateral MG 3d screening mammo w/cad. August 21, 2016, bilateral MG 3d screening mammo w/cad. The breast tissue is heterogeneously dense. This may lower the sensitivity of mammography. Benign appearing bilateral calcifications. No suspicious abnormality. No significant changes when compared with prior studies. ASSESSMENT: Benign, BI-RAD 2 RECOMMENDATION: Routine screening mammogram of both breasts in 1 year.
== END | disposition home or self-care (01) ==
LOC: RADMAMWWP 08:19
PROVIDERS: ATTEND Family Medicine
DX: Z12.31 Encounter for screening mammogram for malignant neoplasm of breast (principal)
CPT/HCPCS: 77063; 77067

== ENCOUNTER 2019-02-05 11:12 | Emergency (ER) | payer MEDICARE ==
--- NOTE | 2019-02-05 11:22 | US ---
EXAMINATION TYPE: US venous doppler duplex LE LT DATE OF EXAM: 02/05/2019 10:53 AM COMPARISON: NONE CLINICAL HISTORY: I80.9 Phlebitis and Thrombophlebitis. SIDE PERFORMED: Left TECHNIQUE: The lower extremity deep venous system is examined utilizing real time linear array sonog [place] with graded compression, doppler sonography and color-flow sonography. VESSELS IMAGED: External Iliac Vein (EIV) Common Femoral Vein Deep Femoral Vein Greater Saphenous Vein * Femoral Vein Popliteal Vein Small Saphenous Vein * Proximal Calf Veins (* superficial vessels) Abnormal luminal echoes noted within the common femoral vein on the left, there is a lack of color fl ow present, some minimal eccentric wall is present. Low level internal echoes noted within the femora l vein, there is lack of color flow and vascular waveforms. There is a lack of compressibility in the common femoral and femoral and popliteal veins extending to the deep veins in the calf. Left Leg: Positive for DVT from the left CFV to the left proximal calf veins. Left SVT in the small saphenous vein IMPRESSION: Deep venous thrombosis from the calf veins to the level of the common femoral vein A Red level critical message alert has been initiated for Adin Oliva via the [employer] System on 02/05/2019 11:19 AM. This message alert has been sent to Adin conde the preferences provided by the clinician for the receipt of Radiology Critical Findings. Message I D [id number].
--- NOTE | 2019-02-05 12:05 | ED ---
Recheck HPI - General Chief Complaint: Recheck/Abnormal Lab/Rx Stated Complaint: DVT Time Seen by Provider: 02/05/19 11:20 Source: patient, family, RN notes reviewed, old records reviewed Mode of arrival: wheelchair Limitations: no limitations - History of Present Illness Initial Comments: This is a 68-year-old female the ER for evaluation. This patient presents today for evaluation of leg pain, outpatient Positive for DVT patient has no ALLERGIES no recent surgeries recent travel history denies chest pain or shortness of breath patient is aware that she had DVT of left lower extremity MD Complaint: other (Patient had outpatient ultrasound showing positive DVT) -: unknown Returns Today for: Called Because of Abnormal Lab/Test (Called because of abnormal outpatient study) Symptoms Since Prior Visit: worsening pain Context: other (Positive outpatient ultrasound for DVT) - Related Data Home Medications Medication Instructions Recorded Confirmed Ascorbic Acid [Vitamin C] 500 mg PO DAILY 11/08/16 02/05/19 Atorvastatin [Lipitor] 20 mg PO HS 11/08/16 02/05/19 Carisoprodol [Soma] 350 mg PO TID 11/08/16 02/05/19 Cetirizine HCl [Zyrtec] 10 mg PO DAILY 11/08/16 02/05/19 Cholecalciferol [Vitamin D3 (25 2,000 unit PO DAILY 11/08/16 02/05/19 Mcg = 1000 Iu)] FLUoxetine HCL [PROzac] 20 mg PO DAILY 11/08/16 02/05/19 Gabapentin [Neurontin] 300 mg PO HS 11/08/16 02/05/19 Lubricant Eye Drops 1 drop BOTH EYES BID PRN 11/08/16 02/05/19 Nadolol [Corgard] 20 mg PO HS 11/08/16 02/05/19 Omeprazole [PriLOSEC] 20 mg PO HS 11/08/16 02/05/19 Vitamin E (Dl,Tocopheryl Acet) 400 unit PO DAILY 11/08/16 02/05/19 [Vitamin E] Acetaminophen [Tylenol Arthritis] 650 mg PO BID PRN 02/05/19 02/05/19 Ibuprofen [Motrin] 800 mg PO DAILY 02/05/19 02/05/19 Montelukast [Singulair] 10 mg PO HS 02/05/19 02/05/19 Vitamin B Complex 2 cap PO DAILY 02/05/19 02/05/19 traMADol HCL [Ultram] 50 mg PO BID PRN 02/05/19 02/05/19 Previous Rx's Medication Instructions Recorded Apixaban [Eliquis Starter Pack 0 mg PO DIRECTED 30 Days #1 pack 02/05/19 (for VTE)] Apixaban [Eliquis] 5 mg PO BID #60 tab 02/05/19 Allergies Allergy/AdvReac Type Severity Reaction Status Date / Time adhesive Allergy Unknown Red Verified 02/05/19 11:55 irritated skin with ekg electrodes. adhesive tape Allergy Unknown Red Verified 02/05/19 11:55 irritated skin nickel Allergy Unknown Rash/Hives Verified 02/05/19 11:55 strawberry Allergy Unknown Tongue and Verified 02/05/19 11:55 lips feel picky titanium Allergy Unknown Rash/Hives Verified 02/05/19 11:55 Review of Systems ROS Statement: Those systems with pertinent positive or pertinent negative responses have been documented in the HPI. ROS Other: All systems not noted in ROS Statement are negative. Past Medical History Past Medical History: Fibromyalgia, GERD/Reflux, Osteoarthritis (OA) Additional Past Medical History / Comment(s): OCCASIONAL VERTIGO, MITRAL VALVE PROLAPSE (PRE-MEDICATES FOR DENTAL PROCEDURES), ENVIRONMENTAL ALLERGIES, IBS, DIVERTICULOSIS, BACK PAIN WITH EPIDURAL INJECTIONS (LAST APR 2016), OVER-ACTIVE BLADDER. , DRY EYES., USES CANE PRN., STATES PRESCRIPTION FOR BACTRIM FOR BACTERIA IN URINE FROM DR BELLO'S OFFICE History of Any Multi-Drug Resistant Organisms: None Reported Past Surgical History: Appendectomy, Section, Hysterectomy, Orthopedic Surgery Additional Past Surgical History / Comment(s): VAGINAL CYST, D & C , COURTNEY, SHAWNEE ROTATOR CUFF, TRABECULOPLASTY EYE SURGERY FOR GLAUCOMA, SHAWNEE CATARACTS & LAZER EYE SURGERY , LEFT TRIGGER THUMB, ARTHROSCOPY LEFT KNEE, EYE LID PTOSIS SURGERY, COLONOSCOPY , EPIDURAL INJECTIONS AND RADIOFREQUENCY BACK PROCEDURES. Right eye bleb surgery Past Anesthesia/Blood Transfusion Reactions: Motion Sickness, Postoperative Nausea & Vomiting (PONV) Past Psychological History: No Psychological Hx Reported Smoking Status: Never smoker Past Alcohol Use History: Rare Past Drug Use History: None Reported - Past Family History Daughter(s) Family Medical History: Cancer Additional Family Medical History / Comment(s): MELANOMA General Exam - General Exam Comments Initial Comments: Left lower extremity edema and pain, 2+ pulses posterior tibialis distalis pedis Limitations: no limitations General appearance: alert, in no apparent distress Head exam: Present: atraumatic, normocephalic, normal inspection Eye exam: Present: normal appearance, PERRL, EOMI. Absent: scleral icterus, conjunctival injection, periorbital swelling ENT exam: Present: normal exam, mucous membranes moist Neck exam: Present: normal inspection. Absent: tenderness, meningismus, lymphadenopathy Respiratory exam: Present: normal lung sounds bilaterally. Absent: respiratory distress, wheezes, rales, rhonchi, stridor Cardiovascular Exam: Present: regular rate, normal rhythm, normal heart sounds. Absent: systolic murmur, diastolic murmur, rubs, gallop, clicks GI/Abdominal exam: Present: soft, normal bowel sounds. Absent: distended, tenderness, guarding, rebound, rigid Extremities exam: Present: normal inspection, full ROM, normal capillary refill. Absent: tenderness, pedal edema, joint swelling, calf tenderness Back exam: Present: normal inspection Neurological exam: Present: alert, oriented X3, CN II-XII intact Psychiatric exam: Present: normal affect, normal mood Skin exam: Present: warm, dry, intact, normal color. Absent: rash Course Vital Signs 02/05/19 02/05/19 11:12 12:30 Temperature 98.9 F 97.7 F Pulse Rate 71 72 Respiratory 18 17 Rate Blood Pressure 152/95 143/84 O2 Sat by Pulse 96 99 Oximetry - Reevaluation(s) Reevaluation #1: Medical records reviewed Discussed with patient at length regarding findings, treatment plan, questions are answered Medical Decision Making - Medical Decision Making 68 female the ER for evaluation positive ultrasound for DVT, will be treated on [place] and discharged home. - Radiology Data Radiology results: report reviewed (Ultrasound positive for DVT) Disposition Clinical Impression: DVT (deep venous thrombosis) Disposition: HOME SELF-CARE Condition: Good Instructions (If sedation given, give patient instructions): Deep Vein Thrombosis (ED) Prescriptions: Apixaban [Eliquis] 5 mg PO BID #60 tab Apixaban [Eliquis Starter Pack (for VTE)] 0 mg PO DIRECTED 30 Days #1 pack Is patient prescribed a controlled substance at d/c from ED?: No Referrals: Yunior Melendez MD [Primary Care Provider] - 1-2 days
[2019-02-05] MEDS ORDERED: APIXABAN 5 MG TAB PO STA (12:16)
[2019-02-05 12:31] VITALS: BP 143/84; PULSE 72; RESP 17; TEMP 97.7
== END 2019-02-05 12:30 | disposition home or self-care (01) ==
LOC: EC 11:12
DX: I82.402 Acute embolism and thrombosis of unspecified deep veins of left lower extremity (principal); K21.9 Gastro-esophageal reflux disease without esophagitis; M79.7 Fibromyalgia; M19.90 Unspecified osteoarthritis, unspecified site; Z79.899 Other long term (current) drug therapy; Z91.048 Other nonmedicinal substance allergy status; Z91.018 Allergy to other foods; Z98.42 Cataract extraction status, left eye; Z98.41 Cataract extraction status, right eye
CPT/HCPCS: 99284

== ENCOUNTER → 2019-02-12 | Outpatient (CLI) | payer MEDICARE ==
[2019-02-12 09:33] LABS: HGB 14.3 gm/dL (11.4-16.0); MCH 33.5 pg (25.0-35.0); MCHC 34.1 g/dL (31.0-37.0); MCV 98.1 fL (80.0-100.0); Platelet Count 345 k/uL (150-450); RBC 4.28 m/uL (3.80-5.40); RDW 12.2 % (11.5-15.5); WBC 7.3 k/uL (3.8-10.6)
[2019-02-12 16:48] LABS: African American GFR (CKD) 107.8 (60.0-200.0); Albumin 4.2 g/dL (3.80-4.90); Albumin/Globulin Ratio 2.33 (1.60-3.17); Anion Gap 7.6 mmol/L (4.00-12.00); BUN/Creat Ratio 28.33 Ratio (12.00-20.00); Calcium 9.9 mg/dL (8.7-10.3); Carbon Dioxide 27.4 mmol/L (21.6-31.8); Chol/HDL Ratio 4.17; Globulin 1.8 g/dL (1.6-3.3); LDL Cholesterol,Calculated 105.2 mg/dL (0.0-131.0); Potassium 4.3 mmol/L (3.5-5.5); Total Bilirubin 0.5 mg/dL (0.2-1.2); VLDL Calculation 43.8 mg/dL (5.00-40.00)
== END | disposition home or self-care (01) ==
LOC: LABWHC1 08:33
PROVIDERS: ATTEND Family Medicine
DX: E78.5 Hyperlipidemia, unspecified (principal); I82.409 Acute embolism and thrombosis of unspecified deep veins of unspecified lower extremity
CPT/HCPCS: 36415; 80053; 80061; 85027

== ENCOUNTER → 2019-11-28 | Outpatient (CLI) | payer MEDICARE ==
--- NOTE | 2019-12-02 11:47 | MM ---
Reason for exam: screening (asymptomatic). Last mammogram was performed 1 year and 3 months ago. History: Patient is postmenopausal. Benign cyst aspiration of the right breast, 1976. Physical Findings: A clinical breast exam by your physician is recommended on an annual basis and results should be correlated with mammographic findings. MG 3D Screening Mammo W/Cad Bilateral CC and MLO view(s) were taken. Prior study comparison: September 02, 2018, bilateral MG 3d screening mammo w/cad. August 31, 2017, bilateral MG 3d screening mammo w/cad. There are scattered fibroglandular densities. There is chronic nodularity bilaterally. No significant changes when compared with prior studies. ASSESSMENT: Benign, BI-RAD 2 RECOMMENDATION: Routine screening mammogram of both breasts in 1 year.
== END | disposition home or self-care (01) ==
LOC: RADMAMWWP 09:18
PROVIDERS: ATTEND Family Medicine
DX: Z12.31 Encounter for screening mammogram for malignant neoplasm of breast (principal)
CPT/HCPCS: 77063; 77067

== ENCOUNTER 2020-08-21 13:56 | Emergency (ER) | payer MEDICARE ==
[2020-08-21 14:03] VITALS: RESP 16
[2020-08-21] MEDS ORDERED: SODIUM CHLORIDE 0.9% 1,000 ML IV STA (14:32)
--- NOTE | 2020-08-21 14:54 | ED ---
Abdominal Pain HPI - General Chief Complaint: Abdominal Pain Stated Complaint: Right flank pain Time Seen by Provider: 08/21/20 14:09 Source: patient Mode of arrival: ambulatory Limitations: no limitations - History of Present Illness Initial Comments: 70-year-old female presents to the emergency department with chief complaint of right flank pain. Patient reports this was sudden onset pain is started early this morning. Patient reports the pain is 5/time. He states it is sharp and intermittent in nature but as of lately has been constant. Patient reports about 2 weeks ago she has noticed some gross hematuria and was diagnosed with a urinary tract infection but a primary care physician. Patient reports taking a course of Bactrim. Patient reports the symptoms resolved but now the pain is started. She denies any hematuria at this time but does report dark urine. She denies increased urgency frequency or dysuria. Denies any radiation of the pain. No chest pain shortness of breath nausea vomiting diarrhea. Denies any vaginal symptoms. Denies taking medications similar symptoms. Patient takes a blood thinner due to history of DVT. - Related Data Home Medications Medication Instructions Recorded Confirmed Ascorbic Acid [Vitamin C] 500 mg PO DAILY 11/08/16 08/21/20 Atorvastatin [Lipitor] 20 mg PO HS 11/08/16 08/21/20 Cetirizine HCl [Zyrtec] 10 mg PO DAILY 11/08/16 08/21/20 FLUoxetine HCL [PROzac] 20 mg PO DAILY 11/08/16 08/21/20 Gabapentin [Neurontin] 300 mg PO HS 11/08/16 08/21/20 Omeprazole [PriLOSEC] 20 mg PO HS 11/08/16 08/21/20 Vitamin E (Dl,Tocopheryl Acet) 400 unit PO DAILY 11/08/16 08/21/20 [Vitamin E] carisoprodoL [Soma] 350 mg PO TID PRN 11/08/16 08/21/20 nadoloL [Corgard] 20 mg PO HS 11/08/16 08/21/20 Montelukast [Singulair] 10 mg PO HS 02/05/19 08/21/20 Vitamin B Complex 2 cap PO DAILY 02/05/19 08/21/20 traMADol HCL [Ultram] 50 mg PO BID PRN 02/05/19 08/21/20 Acetaminophen Tab [Tylenol] 500 mg PO DAILY PRN 08/21/20 08/21/20 Cholecalciferol (Vitamin D3) 125 mcg PO DAILY 08/21/20 08/21/20 [Vitamin D3 (5000 Iu)] Cranberry Fruit Extract [Cranberry] 500 mg PO BID 08/21/20 08/21/20 Glucos Sul 2Kcl/MSM/Chond/C/Mn 2 tab PO BID-W/MEALS 08/21/20 08/21/20 [Glucosamine Chondroitin Cap] Latanoprost [Xalatan 0.005%] 1 drop BOTH EYES HS 08/21/20 08/21/20 Ocusoft Retaine Lubricating Eye 1 drop BOTH EYES TID 08/21/20 08/21/20 Drop Pumpkin Seed Extract (Unknown 1 tab PO BID 08/21/20 08/21/20 Strength) Zinc 50 mg PO DAILY 08/21/20 08/21/20 Previous Rx's Medication Instructions Recorded Apixaban [Eliquis] 5 mg PO BID #60 tab 02/05/19 HYDROcodone/APAP 5-325MG [[place] 1 tab PO Q6HR PRN 3 Days #12 tab 08/21/20 5-325] Ondansetron Odt [Zofran Odt] 4 mg PO Q8HR PRN #14 tab 08/21/20 Allergies Allergy/AdvReac Type Severity Reaction Status Date / Time adhesive Allergy Unknown Red Verified 08/21/20 15:36 irritated skin with ekg electrodes. adhesive tape Allergy Unknown Red Verified 08/21/20 15:36 irritated skin nickel Allergy Unknown Rash/Hives Verified 08/21/20 15:36 strawberry Allergy Unknown Tongue and Verified 08/21/20 15:36 lips feel picky titanium Allergy Unknown Rash/Hives Verified 08/21/20 15:36 Review of Systems ROS Statement: Those systems with pertinent positive or pertinent negative responses have been documented in the HPI. ROS Other: All systems not noted in ROS Statement are negative. Past Medical History Past Medical History: Fibromyalgia, GERD/Reflux, Osteoarthritis (OA) Additional Past Medical History / Comment(s): OCCASIONAL VERTIGO, MITRAL VALVE PROLAPSE (PRE-MEDICATES FOR DENTAL PROCEDURES), ENVIRONMENTAL ALLERGIES, IBS, DIVERTICULOSIS, BACK PAIN WITH EPIDURAL INJECTIONS (LAST APR 2016), OVER-ACTIVE BLADDER. , DRY EYES., USES CANE PRN., glaucoma, History of Any Multi-Drug Resistant Organisms: None Reported Past Surgical History: Appendectomy, Section, Hysterectomy, Orthopedic Surgery Additional Past Surgical History / Comment(s): VAGINAL CYST, D & C , COURTNEY, SHAWNEE ROTATOR CUFF, TRABECULOPLASTY EYE SURGERY FOR GLAUCOMA, SHAWNEE CATARACTS & LAZER EYE SURGERY , LEFT TRIGGER THUMB, ARTHROSCOPY LEFT KNEE, EYE LID PTOSIS SURGERY, COLONOSCOPY , EPIDURAL INJECTIONS AND RADIOFREQUENCY BACK PROCEDURES. Right eye bleb surgery, Past Anesthesia/Blood Transfusion Reactions: Motion Sickness, Postoperative Nausea & Vomiting (PONV) Past Psychological History: No Psychological Hx Reported Smoking Status: Never smoker Past Alcohol Use History: Rare Past Drug Use History: None Reported - Past Family History Daughter(s) Family Medical History: Cancer Additional Family Medical History / Comment(s): MELANOMA General Exam Limitations: no limitations General appearance: alert, in no apparent distress, obese Head exam: Present: atraumatic, normocephalic, normal inspection Eye exam: Present: normal appearance, PERRL, EOMI Pupils: Present: normal accommodation ENT exam: Present: normal exam, normal oropharynx, mucous membranes moist, TM's normal bilaterally, normal external ear exam Neck exam: Present: normal inspection, full ROM. Absent: tenderness Respiratory exam: Present: normal lung sounds bilaterally. Absent: respiratory distress, wheezes, rales, rhonchi, stridor Cardiovascular Exam: Present: regular rate, normal rhythm, normal heart sounds GI/Abdominal exam: Present: soft. Absent: distended, tenderness, guarding, rebound, rigid Extremities exam: Present: normal inspection, full ROM, normal capillary refill, other (Palpable DP and PT bilaterally). Absent: tenderness, pedal edema, joint swelling, calf tenderness Back exam: Present: normal inspection, full ROM, tenderness, CVA tenderness (R). Absent: CVA tenderness (L) Neurological exam: Present: alert, oriented X3, normal gait Psychiatric exam: Present: normal affect, normal mood Skin exam: Present: warm, dry, intact, normal color Course Vital Signs 08/21/20 08/21/20 13:56 15:56 Temperature 98.5 F Pulse Rate 97 Respiratory 16 16 Rate Blood Pressure 177/85 O2 Sat by Pulse 99 Oximetry Medical Decision Making - Medical Decision Making 70-year-old female presents to emergency Department with a chief complaint abdominal pain. On physical examination, right-sided CVA tenderness. CBC CMP unremarkable. UA shows hematuria. CT abdomen and pelvis without contrast reveals a 1cm proximal ureter stone with right-sided hydronephrosis. Patient was given Ultram for pain per her request. On reevaluation, she reports some improvement in symptoms. Will be discharged with [place]. Opioid form signed. I discussed the case with who also recommended a KUB. He also recommended that he will see her in the office on Sunday. Return parameters discussed with patient is understanding and agreeable. Case discussed with - Lab Data Result diagrams: 08/21/20 15:04 08/21/20 15:04 Lab Results 08/21/20 08/21/20 08/21/20 Range/Units 15:04 15:04 15:04 WBC 10.0 (3.8-10.6) k/uL RBC 4.63 (3.80-5.40) m/uL Hgb 14.9 (11.4-16.0) gm/dL Hct 45.0 (34.0-46.0) % MCV 97.3 (80.0-100.0) fL MCH 32.1 (25.0-35.0) pg MCHC 33.0 (31.0-37.0) g/dL RDW 12.0 (11.5-15.5) % Plt Count 277 (150-450) k/uL MPV 7.2 Neutrophils % 74 % Lymphocytes % 18 % Monocytes % 6 % Eosinophils % 1 % Basophils % 1 % Neutrophils # 7.4 (1.3-7.7) k/uL Lymphocytes # 1.7 (1.0-4.8) k/uL Monocytes # 0.6 (0-1.0) k/uL Eosinophils # 0.1 (0-0.7) k/uL Basophils # 0.1 (0-0.2) k/uL Sodium 137 (137-145) mmol/L Potassium 4.3 (3.5-5.1) mmol/L Chloride 105 (98-107) mmol/L Carbon Dioxide 23 (22-30) mmol/L Anion Gap 9 mmol/L BUN 19 H (7-17) mg/dL Creatinine 0.87 (0.52-1.04) mg/dL Est GFR (CKD-EPI)AfAm 78 (>60 ml/min/1.73 sqM) Est GFR (CKD-EPI)NonAf 67 (>60 ml/min/1.73 sqM) Glucose 106 H (74-99) mg/dL Calcium 10.2 (8.4-10.2) mg/dL Total Bilirubin 0.5 (0.2-1.3) mg/dL AST 34 (14-36) U/L ALT 25 (4-34) U/L Alkaline Phosphatase 69 (38-126) U/L Total Protein 6.9 (6.3-8.2) g/dL Albumin 4.2 (3.5-5.0) g/dL Lipase 130 (23-300) U/L Urine Color Yellow Urine Appearance Clear (Clear) Urine pH 5.5 (5.0-8.0) Ur Specific [place] 1.011 (1.001-1.035) Urine Protein Negative (Negative) Urine Glucose (UA) Negative (Negative) Urine Ketones Negative (Negative) Urine Blood Moderate H (Negative) Urine Nitrite Negative (Negative) Urine Bilirubin Negative (Negative) Urine Urobilinogen <2.0 (<2.0) mg/dL Ur Leukocyte Esterase Negative (Negative) Urine RBC 70 H (0-5) /hpf Urine WBC <1 (0-5) /hpf Ur Squamous Epith Cells 1 (0-4) /hpf Urine Mucus Rare H (None) /hpf - EKG Data EKG Comments: Sinus rhythm with no ST or T-wave changes. Ventricular rate 75, KS 180, QRS 74, QTC 417. Disposition Clinical Impression: Nephrolithiasis, Abdominal pain, Hematuria, Hydronephrosis Disposition: HOME SELF-CARE Condition: Stable Instructions (If sedation given, give patient instructions): Abdominal Pain (ED) Additional Instructions: Take prescribed medication as directed. Follow-up with . Please return to the Emergency Department if symptoms worsen or any other concerns. Prescriptions: HYDROcodone/APAP 5-325MG [[place] 5-325] 1 tab PO Q6HR PRN 3 Days #12 tab PRN Reason: Pain Ondansetron Odt [Zofran Odt] 4 mg PO Q8HR PRN #14 tab PRN Reason: Nausea Is patient prescribed a controlled substance at d/c from ED?: No Referrals: Yunior Melendez MD [Primary Care Provider] - 1-2 days Time of Disposition: 16:43
[2020-08-21 15:18] LABS: Basophils # (A) 0.1 k/uL (0-0.2); Basophils % (A) 1 %; Eosinophils # (A) 0.1 k/uL (0-0.7); Eosinophils % (A) 1 %; HGB 14.9 gm/dL (11.4-16.0); Lymphocytes # (A) 1.7 k/uL (1.0-4.8); Lymphocytes % (A) 18 %; MCH 32.1 pg (25.0-35.0); MCV 97.3 fL (80.0-100.0); Mean Platelet Volume 7.2; Monocytes # (A) 0.6 k/uL (0-1.0); Monocytes % (A) 6 %; Neutrophils # (A) 7.4 k/uL (1.3-7.7); Neutrophils % (A) 74 %; Platelet Count 277 k/uL (150-450); RBC 4.63 m/uL (3.80-5.40)
[2020-08-21 15:21] LABS: Albumin 4.2 g/dL (3.5-5.0); Calcium 10.2 mg/dL (8.4-10.2); Potassium 4.3 mmol/L (3.5-5.1); Total Bilirubin 0.5 mg/dL (0.2-1.3); Total Protein 6.9 g/dL (6.3-8.2)
[2020-08-21 15:23] LABS: Appearance,Urine Clear (Clear); Bilirubin,Urine Negative (Negative); Blood,Urine Moderate (Negative); Color,Urine Yellow; Glucose,Urine (UA) Negative (Negative); Ketones,Urine Negative (Negative); Leukocyte Esterase,Urine Negative (Negative); Mucus,Urine Rare /hpf; Nitrite,Urine Negative (Negative); PH, Urine 5.5 (5.0-8.0); Protein,Urine Negative (Negative); RBC,Urine 70 /hpf (0-5); Specific Gravity,Urine 1.011 (1.001-1.035); Squamous Epithelial Cell,Urine 1 /hpf (0-4); Urobilinogen,Urine <2.0 mg/dL (<2.0); WBC,Urine <1 /hpf (0-5)
[2020-08-21] MEDS ORDERED: traMADol 50 MG TAB PO STA (15:27)
--- NOTE | 2020-08-21 15:46 | CT ---
EXAMINATION TYPE: CT abdomen pelvis wo con DATE OF EXAM: 08/21/2020 COMPARISON: None HISTORY: right flank pain CT DLP: 992.6 mGycm Automated exposure control for dose reduction was used. TECHNIQUE: Helical acquisition of images from the lung bases through the pelvis. FINDINGS: Lack of contrast could compromise sensitivity of the exam. LUNG BASES: No significant abnormality is appreciated. AORTA: No significant abnormality is appreciated. LIVER/GB: No significant abnormality is appreciated. PANCREAS: No significant abnormality is seen. SPLEEN: Scattered calcifications are consistent with old granulomatous disease. ADRENALS: No significant abnormality is seen. KIDNEYS: There is moderate right-sided hydronephrosis, proximal right ureteral calculus is present me asuring 1 cm, there may be some local forniceal rupture, some local fluid is present. Left kidney wit hin normal limits. REPRODUCTIVE ORGANS: Uterus and adnexal structures are not seen.. URINARY BLADDER: No significant abnormality is seen. BOWEL: Probable duodenal diverticulum at the head of the pancreas level.. FREE AIR: No Free Air is visible. ASCITES: None visible. PELVIC ADENOPATHY: None visualized. RETROPERITONEAL ADENOPATHY: No Retroperitoneal Adenopathy visible. OSSEOUS STRUCTURES: Degenerative disc changes are present in the visualized spine, anterolisthesis g rade 1 L4-5, there is multilevel vacuum phenomenon, facet arthropathy IMPRESSION: OBSTRUCTIVE RIGHT POSSIBLE URETERAL CALCULUS
--- NOTE | 2020-08-21 17:00 | XR ---
KUB HISTORY: Kidney stone KUB submitted on 2 images and correlated to prior CT scan 08/21/2020 The calcification seen at the level of the right ureter on patient's CT is present in the right fabian sheela location at approximately the L5 level and measures approximately 7 mm. Air-filled loops of sma ll and large bowel present, there is a spinal curvature, degenerative disc change. No evident pneumop eritoneum or bowel obstruction. IMPRESSION: Right ureteral calculus.
[2020-08-21 17:14] VITALS: BP 174/84; PULSE 76; TEMP 97.8
== END 2020-08-21 17:10 | disposition home or self-care (01) ==
LOC: EC 13:56
DX: N13.2 Hydronephrosis with renal and ureteral calculous obstruction (principal); K21.9 Gastro-esophageal reflux disease without esophagitis; K58.9 Irritable bowel syndrome, unspecified; M19.90 Unspecified osteoarthritis, unspecified site; M79.7 Fibromyalgia; Z79.01 Long term (current) use of anticoagulants; I34.1 Nonrheumatic mitral (valve) prolapse; Z79.899 Other long term (current) drug therapy; Z86.718 Personal history of other venous thrombosis and embolism
CPT/HCPCS: 36415; 74018; 74176; 80053; 81001; 83690; 85025; 93005

== ENCOUNTER 2020-08-26 06:49 | Day surgery (SDC) | payer MEDICARE ==
[2020-08-23 11:03] VITALS: BMI 35.6
--- NOTE | 2020-08-25 17:32 | P.GSHP ---
History of Present Illness H&P Date: 08/25/20 Chief Complaint: Right renal colic The patient is a 70-year-old white female with no prior history of urolithiasis. She experienced gross hematuria in May 2020. On 08/21/2020 she experienced acute onset of right flank pain. Computed tomography scan showed moderate right hydronephrosis due to a 1 cm right proximal ureteral calculus. - Constitutional Constitutional: Denies chills, Denies fever - Gastrointestinal Gastrointestinal: Denies nausea, Denies vomiting - Genitourinary (Female) Genitourinary: Reports flank pain, Reports hematuria, Reports kidney stones Past Medical History Past Medical History: Deep Vein Thrombosis (DVT), Fibromyalgia, GERD/Reflux, Hyperlipidemia, Mitral Valve Prolapse (MVP), Osteoarthritis (OA) Additional Past Medical History / Comment(s): hx OCCASIONAL VERTIGO, , ENVIRONMENTAL ALLERGIES, IBS, DIVERTICULOSIS, OVER-ACTIVE BLADDER. , DRY EYES., glaucoma, varicose veins, hx hiatal hernia, chronic back pain:degenerative disk disease, spurs on spine, collapsed disks, spnodolysis, scoliosis, spinal stenosis, kdiney stones, past hx frequent UTI's, blood in urine, History of Any Multi-Drug Resistant Organisms: None Reported Past Surgical History: Appendectomy, Section, Hysterectomy, Joint Re placement, Orthopedic Surgery Additional Past Surgical History / Comment(s): VAGINAL CYST, D & C ,SHAWNEE ROTATOR CUFF, TRABECULOPLASTY EYE SURGERY FOR GLAUCOMA, SHAWNEE CATARACTS & LAZER EYE SURGERY , LEFT TRIGGER THUMB, ARTHROSCOPY LEFT KNEE, EYE LID PTOSIS SURGERY, COLONOSCOPY , EPIDURAL INJECTIONS AND RADIOFREQUENCY BACK PROCEDURES. Right eye bleb surgery, rt knee replacement Past Anesthesia/Blood Transfusion Reactions: Motion Sickness, Postoperative Nausea & Vomiting (PONV) Additional Past Anesthesia/Blood Transfusion Reaction / Comment(s): "retching" after general anesthesia Smoking Status: Never smoker - Past Family History Daughter(s) Family Medical History: Cancer Additional Family Medical History / Comment(s): MELANOMA Medications and Allergies Home Medications Medication Instructions Recorded Confirmed Type Ascorbic Acid [Vitamin C] 500 mg PO DAILY 11/08/16 08/23/20 History Atorvastatin [Lipitor] 20 mg PO HS 11/08/16 08/23/20 History Cetirizine HCl [Zyrtec] 10 mg PO DAILY 11/08/16 08/23/20 History FLUoxetine HCL [PROzac] 20 mg PO DAILY 11/08/16 08/23/20 History Gabapentin [Neurontin] 300 mg PO HS 11/08/16 08/23/20 History Omeprazole [PriLOSEC] 20 mg PO HS 11/08/16 08/23/20 History Vitamin E (Dl,Tocopheryl Acet) 400 unit PO DAILY 11/08/16 08/23/20 History [Vitamin E] carisoprodoL [Soma] 350 mg PO TID PRN 11/08/16 08/23/20 History nadoloL [Corgard] 20 mg PO HS 11/08/16 08/23/20 History Apixaban [Eliquis] 5 mg PO BID #60 tab 02/05/19 08/23/20 Rx Montelukast [Singulair] 10 mg PO HS 02/05/19 08/23/20 History Vitamin B Complex 1 cap PO DAILY 02/05/19 08/23/20 History traMADol HCL [Ultram] 50 mg PO QID 02/05/19 08/23/20 History Acetaminophen Tab [Tylenol] 500 mg PO DAILY PRN 08/21/20 08/23/20 History Cholecalciferol (Vitamin D3) 125 mcg PO DAILY 08/21/20 08/23/20 History [Vitamin D3 (5000 Iu)] Glucos Sul 2Kcl/MSM/Chond/C/Mn 2 tab PO BID-W/MEALS 08/21/20 08/23/20 History [Glucosamine Chondroitin Cap] HYDROcodone/APAP 5-325MG [[place] 1 tab PO Q6HR PRN 3 Days #12 tab 08/21/20 08/23/20 Rx 5-325] Latanoprost [Xalatan 0.005%] 1 drop BOTH EYES HS 08/21/20 08/23/20 History Ondansetron Odt [Zofran Odt] 4 mg PO Q8HR PRN #14 tab 08/21/20 08/23/20 Rx Pumpkin Seed Extract (Unknown 1 tab PO BID 08/21/20 08/23/20 History Strength) Zinc 50 mg PO DAILY 08/21/20 08/23/20 History Retaine Eye Drops 1 drop BOTH EYES TID 08/23/20 08/23/20 History Allergies Allergy/AdvReac Type Severity Reaction Status Date / Time adhesive Allergy Unknown Red Verified 08/23/20 10:42 irritated skin with ekg electrodes. adhesive tape Allergy Unknown Red Verified 08/23/20 10:42 irritated skin nickel Allergy Unknown Rash/Hives Verified 08/23/20 10:42 strawberry Allergy Unknown Tongue and Verified 08/23/20 10:42 lips feel picky titanium Allergy Unknown Rash/Hives Verified 08/23/20 10:42 bandaids Allergy Rash/Hives Uncoded 08/23/20 10:42 Surgical - Exam - General well developed, well nourished, no distress - Respiratory normal respiratory effort, clear to auscultation - Cardiovascular Rhythm: regular Abnormal Heart Sounds: no systolic murmur, no diastolic murmur, no rub, no S3 Gallop, no S4 Gallop, no click, no other - Abdomen Abdomen: soft, non tender, no guarding, no rigid, no rebound - Psychiatric oriented to time, oriented to person, oriented to place, speech is normal, memory intact Results - Imaging CT scan - abdomen: report reviewed, image reviewed Assessment and Plan (1) Calculus of ureter Status: Acute Code(s): N20.1 - CALCULUS OF URETER SNOMED Code(s): 45387065 (2) Hydronephrosis with renal and ureteral calculous obstruction Status: Acute Code(s): N13.2 - HYDRONEPHROSIS WITH RENAL AND URETERAL CALCULOUS OBSTRUCTION SNOMED Code(s): 532626052 Plan: Cystoscopy, possible right retrograde pyelogram, right ureteroscopy with Holmium laser lithotripsy and possible stone basketing, right ureteral stent insertion. The procedure has been reviewed in detail with the patient. She is aware of potential risks, which include anesthesia, bleeding, infection, inability to successfully remove the calculus, and ureteral injury.
[~2020-08-26 06:49] MED LIST changes: -ACETAMINOPHEN TAB 500 MG TAB PO ONE; -DEXAMETHASONE SOD PHOSPHATE 10 MG/ML 1 ML VIAL IV ONE; +DEXAMETHASONE SOD PHOSPHATE 4 MG/ML 1 ML VIAL IV ONE; -HYDROmorphone 1 MG/ML 1 ML SYRINGE IVP PRN; +LACTATED RINGERS 1,000 ML IV SCH; +LIDOCAINE 1% (10MG/ML) FOR IV START INTRADERMA PRN; -LIDOCAINE 1% 20 ML VIAL (10MG/ML) FOR IV START INTRADERMA PRN; -MELOXICAM 7.5 MG TAB PO ONE; -ROPIVACAINE 246.25 MG, EPINEPHrine 0.5 MG, KETOROLAC 30 MG, cloNIDine HCL/PF 80 MCG, WA... MISCELLANE ONE; -SCOPOLAMINE 1.5MG/72HR PATCH TRANSDERM ONE; -TRANEXAMIC ACID 1,000 MG in SODIUM CHLORIDE 0.9% 100 ML IVPB ONE; -ceFAZolin 2 GM in SODIUM CHLORIDE 0.9% 100 ML IVPB ONE
--- NOTE | 2020-08-26 07:10 | XR ---
EXAMINATION TYPE: XR KUB DATE OF EXAM: 08/26/2020 COMPARISON: 08/21/2020 HISTORY: Renal stone TECHNIQUE: One view abdominal series FINDINGS: The osseous structures are intact. The bowel gas pattern is nonspecific. Scoliosis and severe degene rative change of the spine. There is a 6.5 mm calcification adjacent to the L2-L3 disc interspace on the right. Calcification pel vis likely vascular. Arthropathy of the hips.. IMPRESSION: 1. Right ureteral calculus similar position relative to prior
[2020-08-26] MEDS ORDERED: ONDANSETRON 4 MG/2 ML VIAL ONE ×2 (07:52→07:55)
[2020-08-26] MEDS ORDERED: MIDAZOLAM 2 MG/2 ML VIAL IVP ONE (07:57)
[2020-08-26] MEDS ORDERED: ePHEDrine SULFATE/0.9% NACL/PF 50 MG/5 ML SYRINGE IV ONE (08:41)
[2020-08-26] MEDS ORDERED: LIDOCAINE 1% INJ 10MG/ML (20 ML MDV) ONE (08:41)
[2020-08-26] MEDS ORDERED: MIDAZOLAM 2 MG/2 ML VIAL ONE (08:41)
[2020-08-26] MEDS ORDERED: PROPOFOL 10 MG/ML 20 ML VIAL IV ONE (08:41)
[2020-08-26] MEDS ORDERED: fentaNYL (PF) 50 MCG/ML 2 ML AMP ONE (08:41)
[2020-08-26 10:09] VITALS: TEMP 96.8
--- NOTE | 2020-08-26 10:22 | P.OP ---
Date of Procedure: 08/26/20 Preoperative Diagnosis: Right ureteral calculus Postoperative Diagnosis: Same Procedure(s) Performed: Cystoscopy, right ureteroscopy with Holmium laser lithotripsy and stone basketing, right ureteral stent insertion Anesthesia: ERLINDA Surgeon: Denis Simms Estimated Blood Loss (ml): 0 IV fluids (ml): 600 Pathology: other (Calculus fragments, sent for chemical analysis) Condition: stable Disposition: PACU Indications for Procedure: The patient is a 70-year-old white female with no prior history of urolithiasis. She experienced gross hematuria in May 2020. On 08/21/2020 she experienced acute onset of right flank pain. Computed tomography scan showed moderate right hydronephrosis due to a 1 cm right proximal ureteral calculus. Operative Findings: 8-10 mm right proximal ureteral calculus, fragmented completely. Description of Procedure: The patient was taken to the operating room and placed in the dorsolithotomy position, with legs supported in Kayode stirrups. The external genitalia was prepped and draped sterilely. The 30 lens was used to introduce the 21-Brazilian Olpes cystoscopic sheath through the urethra and into the bladder under direct vision. The bladder was examined in its entirety. Both ureteral orifices were normal anatomic location and configuration, and clear urine effluxed from both. No tumors or foreign bodies were seen. The Lopes semirigid ureteroscope was advanced into the bladder, and the right ureteral orifice was cannulated. The ureteroscope was slowly advanced up to the calculus. The 200 micron Holmium laser probe was passed through the ureteroscope, and lithotripsy was performed. A 1.9-Brazilian nitinol basket was used to remove all of the calculus fragments from the ureter. There was no evidence of ureteral trauma. A 0.[address] [place] wire was passed through the ureteroscope and advanced up to the right renal pelvis, where it coiled. The ureteroscope was removed, and the Glidewire was backloaded into the cystoscope, which was passed into the bladder. A 24 cm, 4.8-Brazilian double-J ureteral stent was placed over the wire. Her stent positioning was verified fluoroscopically and endoscopically. The bladder was emptied and the cystoscope removed. The patient tolerated the procedure well and was taken to the recovery room in stable condition. appssavvy Report: Procedure Acuity: Semi-Urgent Stone Size and Location: 1 cm, right proximal ureter Ureteral Dilation: No Ureteral Access Sheath Used: No Stone Sent for Analysis: Yes All Stones/Fragments Were Removed with a Basket: Yes Complications: No Preoperative Antibiotics Given: Yes Stent Placed: Yes If Stent Placed, Was String Left Attached: No If Stent Placed, When is it to be Removed: 1 week Discharge Medications: None
[2020-08-26] MEDS ORDERED: hydrALAZINE HCL 20 MG/ML 1 ML VIAL ONE (11:15)
[2020-08-26] MEDS ORDERED: hydrALAZINE HCL 20 MG/ML 1 ML VIAL IV ONE (11:15)
[2020-08-26 11:42] VITALS: BP 159/98; PULSE 85; RESP 16
--- NOTE | 2020-08-26 12:58 | FL ---
Fluoroscopy HISTORY: Ureteral calculus 10 seconds fluoroscopy time supplied to the referring clinician. 1 intraoperative C-arm images docum ent the procedure. See dictated report from urology.
== END 2020-08-26 12:01 | disposition home or self-care (01) ==
LOC: OR 06:49
PROVIDERS: ATTEND Urology
DX: N13.2 Hydronephrosis with renal and ureteral calculous obstruction (principal); K21.9 Gastro-esophageal reflux disease without esophagitis; M79.7 Fibromyalgia; E78.5 Hyperlipidemia, unspecified; M19.90 Unspecified osteoarthritis, unspecified site; I34.1 Nonrheumatic mitral (valve) prolapse; Z91.048 Other nonmedicinal substance allergy status; K58.9 Irritable bowel syndrome, unspecified; K57.90 Diverticulosis of intestine, part unspecified, without perforation or abscess without bleeding; N32.81 Overactive bladder; H04.129 Dry eye syndrome of unspecified lacrimal gland; H40.9 Unspecified glaucoma; I83.90 Asymptomatic varicose veins of unspecified lower extremity; G89.29 Other chronic pain; M54.9 Dorsalgia, unspecified; M77.9 Enthesopathy, unspecified; M41.9 Scoliosis, unspecified; Z87.442 Personal history of urinary calculi; Z87.440 Personal history of urinary (tract) infections; Z90.710 Acquired absence of both cervix and uterus; Z98.891 History of uterine scar from previous surgery; Z90.89 Acquired absence of other organs; Z98.890 Other specified postprocedural states; Z86.718 Personal history of other venous thrombosis and embolism; Z98.42 Cataract extraction status, left eye; Z98.41 Cataract extraction status, right eye; Z96.651 Presence of right artificial knee joint; Z80.8 Family history of malignant neoplasm of other organs or systems; Z79.01 Long term (current) use of anticoagulants; Z79.891 Long term (current) use of opiate analgesic; Z79.899 Other long term (current) drug therapy; Z91.018 Allergy to other foods; Z91.09 Other allergy status, other than to drugs and biological substances
CPT/HCPCS: 82365; 74018; 52356; C2625; C1758; C1769; J2250; J0360; J1100; J0690; J2405; J2001; J3010; J2704

== ENCOUNTER → 2020-10-11 | Outpatient (CLI) | payer MEDICARE ==
--- NOTE | 2020-10-11 10:24 | US ---
EXAMINATION TYPE: US kidneys/renal and bladder DATE OF EXAM: 10/11/2020 COMPARISON: CT CLINICAL HISTORY: N20.1 calculus of ureter, N13.2 Hydronephrosis. Patient is post right ureteral ston e removal in August. EXAM MEASUREMENTS: Right Kidney: 10.1 x 4.8 x 5.0 cm Left Kidney: 9.7 x 5.9 x 5.0 cm Post Void Residual Volume: 10.0 mL Right Kidney: No hydronephrosis or masses seen Left Kidney: No hydronephrosis or masses seen Bladder: wnl Bilateral Jets seen: Yes Normal Post Void Residual: Yes There is no evidence for hydronephrosis at this point in time. No nephrolithiasis is seen. No edison s are identified. The urinary bladder is anechoic. Bilateral ureteral jets are seen. IMPRESSION: No distinct abnormality seen.
== END | disposition home or self-care (01) ==
LOC: RADUSWWP 09:35
PROVIDERS: ATTEND Urology
DX: N13.2 Hydronephrosis with renal and ureteral calculous obstruction (principal)
CPT/HCPCS: 76770

== ENCOUNTER → 2020-12-10 | Outpatient (CLI) | payer MEDICARE ==
--- NOTE | 2020-12-14 10:21 | MM ---
Reason for exam: screening (asymptomatic). Last mammogram was performed 1 year ago. History: Patient is postmenopausal. Benign cyst aspiration of the right breast, 1976. Physical Findings: A clinical breast exam by your physician is recommended on an annual basis and results should be correlated with mammographic findings. MG 3D Screening Mammo W/Cad Bilateral CC and MLO view(s) were taken. Prior study comparison: November 28, 2019, bilateral MG 3d screening mammo w/cad. September 02, 2018, bilateral MG 3d screening mammo w/cad. There are scattered fibroglandular densities. There is chronic nodularity in the right anterior MLO view. No significant changes when compared with prior studies. ASSESSMENT: Benign, BI-RAD 2 RECOMMENDATION: Routine screening mammogram of both breasts in 1 year.
== END | disposition home or self-care (01) ==
LOC: RADMAMWWP 08:15
PROVIDERS: ATTEND Family Medicine
DX: Z12.31 Encounter for screening mammogram for malignant neoplasm of breast (principal); Z78.0 Asymptomatic menopausal state
CPT/HCPCS: 77063; 77067

== ENCOUNTER → 2020-12-27 | Outpatient (CLI) | payer MEDICARE ==
--- NOTE | 2020-12-27 16:10 | BD ---
EXAMINATION TYPE: Axial Bone Density DATE OF EXAM: 12/27/2020 COMPARISON: NONE CLINICAL HISTORY: Height: 5 FT 1/2 IN Weight: 197 FRAX RISK QUESTIONS: Alcohol (3 or more units per day): NO Family History (Parent hip fracture): NO Glucocorticoids (More than 3mos): NO (Ex: prednisone, prednisolone, methylprednisolone, dexamethasone, and hydrocortisone). History of Fracture in Adulthood: YES Secondary Osteoporosis: 1. Type 1 Diabetes: NO 2. Hyperthyroidism: NO 3. Menopause before 45: NO 4. Malnutrition: NO 5. Chronic liver disease: NO Rheumatoid Arthritis: UNSURE Current Tobacco Use: NO RISK FACTORS HISTORY OF: Surgery to Spine/Hip(right/left)/Wrist (right/left): NO Family History of Osteoporosis: YES Active: YES Diet low in dairy products/other sources of calcium: NO Postmenopausal woman: PART HYST AGE 34 UNSURE WHEN SYMPTOMS OCCURED Take estrogen and/or progesterone medications: NO Lost more than 2 inches in height since high school: YES MEDICATIONS: Additional Medications: TRAMODOL NADALOL,ATORVASTATAN, OMEPRAZOLE, FLUXETINE, ZYRTEC, SOMA, TYLENOL, SINGULAIR, VIT D , VIT C, NEURONTIN, ULTRAM, ELIQUIS, Additional History: EXAM MEASUREMENTS: Bone mineral densitometry was performed using the [employer] System. Bone mineral density as measured about the Lumbar spine is: ----- L1-L4(G/cm2): 1.323 T Score Values are as follows: ----- L2: 0.8 ----- L3: 2.1 ----- L4: 2.1 ----- L1-L4: 1.2 Bone mineral density has: INCREASED 7.6 % since study of: 2000 Bone mineral density about the R hip (g/cm2): 0.797 Bone mineral density about the L hip (g/cm2): 0.729 T Score values are as follows: -----R Neck: -1.7 -----L Neck: -2.2 -----R Total: -1.3 -----L Total: -1.3 Bone mineral density has: DECREASED -14.0 % since study of: 2000 IMPRESSION: Osteopenia NOTE: T-SCORE=SD OF THE YOUNG ADULT MEAN.
== END | disposition home or self-care (01) ==
LOC: RADBDWWP 11:15
PROVIDERS: ATTEND Family Medicine
DX: M85.89 Other specified disorders of bone density and structure, multiple sites (principal)
CPT/HCPCS: 77080

== ENCOUNTER → 2021-01-18 | Outpatient (CLI) | payer MEDICARE ==
[2021-01-18 17:49] LABS: Chol/HDL Ratio 3.85; LDL Cholesterol,Calculated 85.4 mg/dL (0.0-131.0); VLDL Calculation 51.6 mg/dL (5.00-40.00)
== END | disposition home or self-care (01) ==
LOC: LABWHC1 07:06
PROVIDERS: ATTEND Family Medicine
DX: E78.5 Hyperlipidemia, unspecified (principal)
CPT/HCPCS: 36415; 80061

== ENCOUNTER → 2021-11-16 | Outpatient (CLI) | payer MEDICARE ==
[2021-11-16 14:40] LABS: Basophils # (A) 0.07 X 10*3/uL (0.00-0.10); Basophils % (A) 0.9 %; Eosinophils # (A) 0.11 X 10*3/uL (0.04-0.35); Eosinophils % (A) 1.4 %; HCT 45.1 % (37.2-46.3); HGB 14.8 g/dL (12.0-15.0); Immature Grans, Automated 0.3 %; Lymphocytes % (A) 25.1 %; MCH 32.5 pg (27.0-32.0); MCHC 32.8 g/dL (32.0-37.0); MCV 99.1 fL (80.0-97.0); Mean Platelet Volume 9.9 fL (9.5-12.2); Monocytes # (A) 0.74 X 10*3/uL (0.20-1.00); Monocytes % (A) 9.3 %; NRBC Per 100 WBC 0 /100 WBCS (0.0-0.0); Neutrophils # (A) 5.02 X 10*3/uL (1.80-7.70); Platelet Count 260 X 10*3/uL (140-440); RBC 4.55 X 10*6/uL (4.10-5.20); RDW 12.2 % (11.5-14.5); WBC 7.96 X 10*3/uL (4.50-10.00)
[2021-11-16 15:06] LABS: ALT 33 U/L (8-44); AST 26 U/L (13-35); African American GFR (CKD) 100.3 (60.0-200.0); Albumin 4.1 g/dL (3.8-4.9); Albumin/Globulin Ratio 1.64 (1.60-3.17); Alkaline Phosphatase 65 U/L (41-126); BUN/Creat Ratio 21.29 Ratio (12.00-20.00); Blood Urea Nitrogen 14.9 mg/dL (9.0-27.0); Calcium 10.2 mg/dL (8.7-10.3); Carbon Dioxide 26.4 mmol/L (20.0-27.5); Chloride 104 mmol/L (96-109); Chol/HDL Ratio 3.56 Ratio; Globulin 2.5 g/dL (1.6-3.3); Glucose 95 mg/dL (70-110); Non-African American GFR(CKD) 86.6 (60.0-200.0); Potassium 4.4 mmol/L (3.5-5.5); Sodium 140 mmol/L (135-145); Total Protein 6.6 g/dL (6.2-8.2)
== END | disposition home or self-care (01) ==
LOC: LABWHC1 07:26
PROVIDERS: ATTEND Family Medicine
DX: E78.5 Hyperlipidemia, unspecified (principal); M06.9 Rheumatoid arthritis, unspecified; K21.9 Gastro-esophageal reflux disease without esophagitis; H40.9 Unspecified glaucoma
CPT/HCPCS: 36415; 80053; 80061; 82306; 84439; 84443; 85025

== ENCOUNTER → 2021-12-13 | Outpatient (CLI) | payer MEDICARE ==
--- NOTE | 2021-12-15 07:39 | MM ---
Reason for Exam: Screening (asymptomatic). Last screening mammogram was performed 12 month(s) ago. Patient History: Menarche at age 13. First Full-Term at age 19. Hysterectomy at age 35. Postmenopausal. 10/30/1976, Benign US breast aspiration single RT on the right side. 1976, Benign Cyst Aspiration on the right side. Risk Values: Ludmila 5 year model risk: 1.4%. NCI Lifetime model risk: 3.8%. Prior Study Comparison: 09/02/2018 Bilateral Screening Mammogram, [facility]. 11/28/2019 Bilateral Screening Mammogram, [facility]. 12/10/2020 Bilateral Screening Mammogram, [facility]. Tissue Density: There are scattered fibroglandular densities. Findings: Analyzed By CAD. No suspicious groups of microcalcifications, spiculated or lobular masses, architectural distortion or other secondary signs of malignancy are mammographically apparent. Overall Assessment: Benign, BI-RAD 2 Management: Screening Mammogram of both breasts in 1 year. A negative mammogram report should not preclude additional follow up of suspicious palpable abnormalities. Patient should continue monthly self breast exam. A clinical breast exam by your physician is recommended on an annual basis and results should be correlated with mammographic findings. Electronically signed and approved by: Jose Mares D.O. Radiologis
== END | disposition home or self-care (01) ==
LOC: RADMAMWWP 08:24
PROVIDERS: ATTEND Family Medicine
DX: Z12.31 Encounter for screening mammogram for malignant neoplasm of breast (principal); Z78.0 Asymptomatic menopausal state
CPT/HCPCS: 77063; 77067

== ENCOUNTER → 2022-11-21 | Outpatient (CLI) | payer MEDICARE ==
[2022-11-21 10:56] LABS: Basophils # (A) 0.07 X 10*3/uL; Eosinophils # (A) 0.15 X 10*3/uL; Eosinophils % (A) 2.1 %; HCT 45.3 %; Lymphocytes # (A) 2.01 X 10*3/uL; MCHC 33.1 d/dL; MCV 99.8 FL; Mean Platelet Volume 9.6 FL; Monocytes # (A) 0.74 X 10*3/uL; Monocytes % (A) 10.3 %; NRBC Per 100 WBC 0 X 10*3/uL; Neutrophils # (A) 4.19 X 10*3/uL; Neutrophils % (A) 58.2 %; Platelet Count 235 X 10*3/uL; RBC 4.54 X 10*6/uL; RDW 11.8 %; WBC 7.19 X 10*3/uL
[2022-11-21 11:14] LABS: ALT 28 U/L; AST 24 U/L; Albumin 4.3 d/dL; Albumin/Globulin Ratio 2.05 Ratio; Alkaline Phosphatase 66 U/L; BUN/Creat Ratio 20.43 Ratio; Blood Urea Nitrogen 14.3 mg/dL; Calcium 10.5 mg/dL; Chloride 104 mmol/L; Chol/HDL Ratio 3.71 Ratio; Globulin 2.1 d/dL; Glucose 91 mg/dL; LDL Cholesterol,Calculated 103.1 mg/dL; Potassium 4.4 mmol/L; Sodium 141 mmol/L; T4, Free (Free Thyroxine) 1.77 ng/dL; Total Bilirubin 0.5 mg/dL; Total Protein 6.4 d/dL
== END | disposition home or self-care (01) ==
LOC: LABWHC1 06:57
PROVIDERS: ATTEND Family Medicine
DX: Z00.00 Encounter for general adult medical examination without abnormal findings (principal)
CPT/HCPCS: 36415; 80053; 80061; 84439; 84443; 85025

== ENCOUNTER → 2022-12-28 | Outpatient (CLI) | payer MEDICARE ==
--- NOTE | 2022-12-28 15:34 | BD ---
EXAMINATION TYPE: Axial Bone Density DATE OF EXAM: 12/28/2022 CLINICAL HISTORY: 72 years old Female. ICD-10 CODE: N95.1 MENOPAUSAL AND FEMALE CLIMACTERIC STA Height: 61 Weight: 198 FRAX RISK QUESTIONS: Family History (Parent hip fracture): no History of Fracture in Adulthood: yes , right foot 2011 Secondary Osteoporosis: no Rheumatoid Arthritis: no RISK FACTORS HISTORY OF: Family History of Osteoporosis: yes, mother Active: no Diet low in dairy products/other sources of calcium: no Postmenopausal woman: yes Lost more than 2 inches in height since high school: yes was 63 Frequent falls: no Poor Health: no MEDICATIONS: Additional Medications: vit d, pain meds, Neurontin, reflux, allergy meds , cholesterol, depression, anxiety, heart meds, eye drops, and blood thinners . EXAM MEASUREMENTS: Bone mineral densitometry was performed using the [employer] System. Bone mineral density as measured about the Lumbar spine is: ----- L1-L4(G/cm2): 1.240 T Score Values are as follows: ----- L1: -0.5 ----- L2: -0.9 ----- L3: 0.6 ----- L4: 2.8 ----- L1-L4: 0.5 Z Score Values are as follows: ----- L1: 0.4 ----- L2: 0.0 ----- L3: 1.5 ----- L4: 3.7 ----- L1-L4: 1.4 Bone mineral density has: Decreased -6.3% since study of: 12-27-2020 Bone mineral density about the R hip (g/cm2): 0.820 Bone mineral density about the L hip (g/cm2): 0.868 T Score values are as follows: -----R Neck: -2.3 -----L Neck: -2.0 -----R Total: -1.5 -----L Total: -1.1 Z Score values are as follows: -----R Neck: -1.0 -----L Neck: -0.6 -----R Total: -0.4 -----L Total: 0.0 Bone mineral density has: Decreased -0.2% since study of: 12-27-2020 FRAX%s: The graph provided illustrates a 20.2% chance for a major osteoporotic fx and a 5.0% chance f or the hips probability for fx in 10 years time. IMPRESSION: Osteopenia (T Score between -2.5 and -1). There is slightly increased risk of fracture and the patient may be considered for treatment. Re-Screen 2-5 years. NOTE: T-SCORE=SD OF THE YOUNG ADULT MEAN.
--- NOTE | 2022-12-29 16:17 | MM ---
Reason for Exam: Screening (asymptomatic). Last mammogram was performed 1 year(s) and 1 month(s) ago. Patient History: Menarche at age 13. First Full-Term at age 19. Hysterectomy at age 35. Postmenopausal. 10/30/1976, Benign US breast aspiration single RT on the right side. 1976, Benign Cyst Aspiration on the right side. Risk Values: Ludmila 5 year model risk: 1.4%. NCI Lifetime model risk: 3.6%. Prior Study Comparison: 11/28/2019 Bilateral Screening Mammogram, [facility]. 12/10/2020 Bilateral Screening Mammogram, [facility]. 12/13/2021 Bilateral MG 3D screening mammo w/cad, [facility]. Tissue Density: There are scattered fibroglandular densities. Findings: Analyzed By CAD. Pattern appears symmetrical and stable. No significant interval changes. No suspicious groups of microcalcifications, spiculated or lobular masses, architectural distortion or other secondary signs of malignancy are mammographically apparent. Overall Assessment: Benign, BI-RAD 2 Management: Screening Mammogram of both breasts in 1 year. A negative mammogram report should not preclude additional follow up of suspicious palpable abnormalities. Patient should continue monthly self breast exam. A clinical breast exam by your physician is recommended on an annual basis and results should be correlated with mammographic findings. Electronically signed and approved by: Jose Mares D.O. Radiologis
== END | disposition home or self-care (01) ==
LOC: RADMAMWWP 09:16
PROVIDERS: ATTEND Family Medicine
DX: Z12.31 Encounter for screening mammogram for malignant neoplasm of breast (principal); M85.89 Other specified disorders of bone density and structure, multiple sites; Z78.0 Asymptomatic menopausal state
CPT/HCPCS: 77063; 77067; 77080

== ENCOUNTER → 2023-10-30 | Outpatient (CLI) | payer MEDICARE ==
[2023-10-30 10:35] LABS: Basophils # (A) 0.06 X 10*3/uL (0.00-0.10); Eosinophils # (A) 0.14 X 10*3/uL (0.04-0.35); Eosinophils % (A) 2.3 %; HCT 46.5 % (37.2-46.3); HGB 15.3 g/dL (12.0-15.0); Lymphocytes # (A) 1.64 X 10*3/uL (0.90-5.00); Lymphocytes % (A) 27.3 %; MCH 32.6 pg (27.0-32.0); MCHC 32.9 g/dL (32.0-37.0); MCV 99.1 FL (80.0-97.0); Mean Platelet Volume 10.2 FL (9.5-12.2); Monocytes # (A) 0.69 X 10*3/uL (0.20-1.00); Monocytes % (A) 11.5 %; NRBC Per 100 WBC 0 X 10*3/uL (0.00-0.01); Neutrophils # (A) 3.46 X 10*3/uL (1.80-7.70); Neutrophils % (A) 57.7 %; Platelet Count 243 X 10*3/uL (140-440); RBC 4.69 X 10*6/uL (4.10-5.20); RDW 11.9 % (11.5-14.5)
[2023-10-30 10:47] LABS: Erythrocyte Sedimentation Rate 10 mm/Hr (0-30)
[2023-10-30 14:45] LABS: ALT 27 U/L (8-44); AST 27 U/L (13-35); Albumin 4.4 g/dL (3.8-4.9); Alkaline Phosphatase 74 U/L (41-126); BUN/Creat Ratio 20.14 Ratio (12.00-20.00); Blood Urea Nitrogen 14.1 mg/dL (9.0-27.0); C Reactive Protein <0.30 mg/dL (0.00-0.80); Calcium 10.6 mg/dL (8.7-10.3); Carbon Dioxide 25.7 mmol/L (21.6-31.8); Chloride 103 mmol/L (96-109); Chol/HDL Ratio 3.34 Ratio; Globulin 2.2 g/dL (1.6-3.3); Glucose 93 mg/dL (70-110); Potassium 4.3 mmol/L (3.5-5.5); Rheumatoid Factor, Qnt <15 IU/mL (0-15); Sodium 141 mmol/L (135-145); T4, Free (Free Thyroxine) 1.49 ng/dL (0.80-1.80); Total Bilirubin 0.6 mg/dL (0.3-1.2); Total Protein 6.6 g/dL (6.2-8.2)
[2023-10-31 17:33] LABS: Cyclic Citrull Pep IgG Unit <1.5 U/mL (<=3.9); Cyclic Citrullinated Pep IgG Negative
== END | disposition home or self-care (01) ==
LOC: LABWHC1 07:02
PROVIDERS: ATTEND Family Medicine
DX: Z00.00 Encounter for general adult medical examination without abnormal findings (principal); K21.9 Gastro-esophageal reflux disease without esophagitis; M06.9 Rheumatoid arthritis, unspecified; H40.9 Unspecified glaucoma
CPT/HCPCS: 36415; 80053; 80061; 84439; 84443; 85025; 85652; 86038; 86140; 86200; 86431

== ENCOUNTER → 2024-01-01 | Outpatient (CLI) | payer MEDICARE ==
--- NOTE | 2024-01-03 15:08 | MM ---
Reason for Exam: Screening (asymptomatic). Last screening mammogram was performed 12 month(s) ago. Patient History: Menarche at age 13. First Full-Term at age 19. Hysterectomy at age 35. Postmenopausal. 10/30/1976, Benign US breast aspiration single RT on the right side. 1976, Benign Cyst Aspiration on the right side. Risk Values: Ludmila 5 year model risk: 1.4%. NCI Lifetime model risk: 3.3%. Prior Study Comparison: 12/10/2020 Bilateral Screening Mammogram, [facility]. 12/13/2021 Bilateral MG 3D screening mammo w/cad, [facility]. 12/28/2022 Bilateral MG 3D screening mammo w/cad, [facility]. Tissue Density: There are scattered areas of fibroglandular density. Findings: Analyzed By CAD. The pattern is symmetrical. Pattern appears stable. Benign calcifications are present bilaterally. No suspicious groups of microcalcifications, spiculated or lobular masses, architectural distortion or other secondary signs of malignancy are mammographically apparent. Overall Assessment: Benign, BI-RAD 2 Management: Screening Mammogram of both breasts in 1 year. A negative mammogram report should not preclude additional follow up of suspicious palpable abnormalities. Patient should continue monthly self breast exam. A clinical breast exam by your physician is recommended on an annual basis and results should be correlated with mammographic findings. Note on Ludmila scores and lifetime risk: 1. A Ludmila score greater than 3% is considered moderate risk. If this is the case, consider specialist referral to assess eligibility for a risk reducing agent. 2. If overall lifetime risk for the development of breast cancer is 20% or higher, the patient may qualify for future screening with alternating mammogram and breast MRI. Electronically signed and approved by: Jose Mares D.O. Radiologis
== END | disposition home or self-care (01) ==
LOC: RADMAMWWP 08:22
PROVIDERS: ATTEND Family Medicine
DX: Z12.31 Encounter for screening mammogram for malignant neoplasm of breast (principal); R92.323 Mammographic fibroglandular density, bilateral breasts; Z78.0 Asymptomatic menopausal state
CPT/HCPCS: 77063; 77067

== ENCOUNTER → 2024-09-19 | Outpatient (CLI) | payer MEDICARE ==
[2024-09-19 11:01] LABS: Basophils # (A) 0.08 X 10*3/uL (0.00-0.10); Basophils % (A) 1.1 %; Eosinophils # (A) 0.28 X 10*3/uL (0.04-0.35); Eosinophils % (A) 3.9 %; HCT 45.8 % (37.2-46.3); HGB 15.3 g/dL (12.0-15.0); Lymphocytes # (A) 1.49 X 10*3/uL (0.90-5.00); Lymphocytes % (A) 20.9 %; MCH 32.1 pg (27.0-32.0); MCHC 33.4 g/dL (32.0-37.0); MCV 96.2 FL (80.0-97.0); Mean Platelet Volume 9.9 FL (9.5-12.2); Monocytes # (A) 0.85 X 10*3/uL (0.20-1.00); Monocytes % (A) 11.9 %; NRBC Per 100 WBC 0 X 10*3/uL (0.00-0.01); Neutrophils % (A) 61.8 %; Platelet Count 256 X 10*3/uL (140-440); RBC 4.76 X 10*6/uL (4.10-5.20); RDW 12.1 % (11.5-14.5); WBC 7.13 X 10*3/uL (4.50-10.00)
[2024-09-19 11:10] LABS: ALT 25 U/L (8-44); AST 28 U/L (13-35); Alkaline Phosphatase 75 U/L (41-126); BUN/Creat Ratio 23.14 Ratio (12.00-20.00); Blood Urea Nitrogen 16.2 mg/dL (9.0-27.0); Calcium 10.3 mg/dL (8.7-10.3); Carbon Dioxide 26.1 mmol/L (21.6-31.8); Chloride 105 mmol/L (96-109); Chol/HDL Ratio 3.37 Ratio; Globulin 2.5 g/dL (1.6-3.3); Glucose 103 mg/dL (70-110); LDL Cholesterol,Calculated 92.3 mg/dL (0.0-131.0); Potassium 4.4 mmol/L (3.5-5.5); Sodium 143 mmol/L (135-145); T4, Free (Free Thyroxine) 1.57 ng/dL (0.80-1.80); Total Bilirubin 0.5 mg/dL (0.3-1.2); Total Protein 6.5 g/dL (6.2-8.2)
== END | disposition home or self-care (01) ==
LOC: LABWHC1 07:23
PROVIDERS: ATTEND Family Medicine
DX: Z00.00 Encounter for general adult medical examination without abnormal findings (principal)
CPT/HCPCS: 36415; 80053; 80061; 84439; 84443; 85025

== ENCOUNTER → 2024-12-24 | Outpatient (CLI) | payer MEDICARE ==
[2024-12-24 10:11] LABS: INR 1.0 (<1.2); Partial Thromboplastin Time 24.9 sec (22.0-30.0); Prothrombin Time 11.5 sec (10.0-12.5)
[2024-12-24 15:14] LABS: HCT 45.2 % (37.2-46.3); HGB 14.9 g/dL (12.0-15.0); MCH 32.3 pg (27.0-32.0); MCHC 33.0 g/dL (32.0-37.0); MCV 98.0 FL (80.0-97.0); NRBC Per 100 WBC 0 X 10*3/uL (0.00-0.01); Platelet Count 251 X 10*3/uL (140-440); RBC 4.61 X 10*6/uL (4.10-5.20); RDW 12.2 % (11.5-14.5); WBC 8.07 X 10*3/uL (4.50-10.00)
[2024-12-24 15:32] LABS: ALT 27 U/L (8-44); AST 28 U/L (13-35); Albumin 4.3 g/dL (3.8-4.9); Albumin/Globulin Ratio 1.87 Ratio (1.60-3.17); Alkaline Phosphatase 67 U/L (41-126); Anion Gap 11.20 mmol/L (4.00-12.00); BUN/Creat Ratio 17.57 Ratio (12.00-20.00); Blood Urea Nitrogen 12.3 mg/dL (9.0-27.0); Calcium 10.3 mg/dL (8.7-10.3); Carbon Dioxide 27.8 mmol/L (21.6-31.8); Chloride 102 mmol/L (96-109); Globulin 2.3 g/dL (1.6-3.3); Glucose 92 mg/dL (70-110); Potassium 4.6 mmol/L (3.5-5.5); Sodium 141 mmol/L (135-145); Total Protein 6.6 g/dL (6.2-8.2)
== END | disposition home or self-care (01) ==
LOC: LABPAT 09:16
PROVIDERS: ATTEND Orthopaedic Surgery Sports Medicine
DX: Z01.818 Encounter for other preprocedural examination (principal); M17.12 Unilateral primary osteoarthritis, left knee; Z22.322 Carrier or suspected carrier of Methicillin resistant Staphylococcus aureus
CPT/HCPCS: 80053; 85027; 85610; 85730; 87070; 93005

== ENCOUNTER → 2025-01-07 | Outpatient (CLI) | payer MEDICARE ==
--- NOTE | 2025-01-07 11:34 | MM ---
Reason for Exam: Screening (asymptomatic). Last screening mammogram was performed 12 month(s) ago. Patient History: Menarche at age 13. First Full-Term at age 19. Hysterectomy at age 35. Postmenopausal. Hormonal Contraceptives for 6 years from age 19 until age 25. 10/30/1976, Benign US breast aspiration single RT on the right side. 1976, Benign Cyst Aspiration on the right side. Risk Values: Ludmila 5 year model risk: 1.4%. NCI Lifetime model risk: 3.1%. Prior Study Comparison: 12/13/2021 Bilateral MG 3D screening mammo w/cad, [facility]. 12/28/2022 Bilateral MG 3D screening mammo w/cad, [facility]. 01/01/2024 Bilateral MG 3D screening mammo w/cad, [facility]. Tissue Density: There are scattered areas of fibroglandular density. Findings: Analyzed By CAD. Right breast: There is no suspicious group of microcalcifications or new suspicious mass. Benign-appearing calcifications right breast. Left breast: There is no suspicious group of microcalcifications or new suspicious mass. Benign-appearing calcifications left breast. Overall Assessment: Benign, BI-RAD 2 Management: Screening Mammogram of both breasts in [address] [facility] will attempt to contact patient to return for supplemental views and ultrasound if indicated. Patient should continue monthly self-breast exams. A clinical breast exam by your physician is recommended on an annual basis. This exam should not preclude additional follow-up of suspicious palpable abnormalities. Note on Ludmila scores and lifetime risk: 1. A Ludmila score greater than 3% is considered moderate risk. If this is the case, consider specialist referral to assess eligibility for a risk reducing agent. 2. If overall lifetime risk for the development of breast cancer is 20% or higher, the patient may qualify for future screening with alternating mammogram and breast MRI. [facility], , 01/07/2025 10:47 AM. Electronically signed and approved by: Ishan Garcia DO
--- NOTE | 2025-01-08 12:50 | BD ---
EXAMINATION TYPE: Axial Bone Density DATE OF EXAM: 01/07/2025 CLINICAL HISTORY: 74 years old Female. ICD-10 CODE: M85.88 DISORDER OF BONE DENSITY , Additional His tory: Height: 60 in Weight: 200 lbs FRAX RISK QUESTIONS: History of Fracture in Adulthood: rt foot fx 2011 Secondary Osteoporosis: 3. Menopause before 44: partial hysterectomy age 34 4. Malnutrition: ibs MEDICATIONS: Osteoporosis Medications: not now Which medication: Boniva How Lon years EXAM MEASUREMENTS: Bone mineral densitometry was performed using the mSpoke System. Bone mineral density as measured about the Lumbar spine is: ----- L1-L4(G/cm2): 1.299 T Score Values are as follows: ----- L1: -0.4 ----- L2: 0.6 ----- L3: 1.8 ----- L4: 1.8 ----- L1-L4: 1.0 Z Score Values are as follows: ----- L1: 0.5 ----- L2: 1.5 ----- L3: 2.7 ----- L4: 2.7 ----- L1-L4: 1.9 Bone mineral density has: Increased 4.8% since study of: 12/28/2022 Bone mineral density about the R hip (g/cm2): 0.769 Bone mineral density about the L hip (g/cm2): 0.810 T Score values are as follows: -----R Neck: -2.1 -----L Neck: -2.4 -----R Total: -1.9 -----L Total: -1.6 Z Score values are as follows: -----R Neck: -0.7 -----L Neck: -1.0 -----R Total: -0.7 -----L Total: -0.4 Bone mineral density has: Decreased -6.4% since study of: 12/28/2022 FRAX%s: The graph provided illustrates a 22.1% chance for a major osteoporotic fx and a 6.3% chance f or the hips probability for fx in 10 years time. IMPRESSION: Osteopenia (T Score between -2.5 and -1). There is slightly increased risk of fracture and the patient may be considered for treatment. Re-Screen 2-5 years. NOTE: T-SCORE=SD OF THE YOUNG ADULT MEAN. [facility], , 01/08/2025 12:48 PM
== END | disposition home or self-care (01) ==
LOC: RADBDWWP 07:51
PROVIDERS: ATTEND Family Medicine
DX: Z12.31 Encounter for screening mammogram for malignant neoplasm of breast (principal); M85.89 Other specified disorders of bone density and structure, multiple sites; R92.323 Mammographic fibroglandular density, bilateral breasts; R92.1 Mammographic calcification found on diagnostic imaging of breast; Z78.0 Asymptomatic menopausal state; Z92.0 Personal history of contraception
CPT/HCPCS: 77063; 77067; 77080

== ENCOUNTER 2025-01-08 05:46 | Day surgery (SDC) | payer MEDICARE ==
[2025-01-02 15:15] VITALS: BMI 37.8
[~2025-01-08 05:46] MED LIST changes: -DEXAMETHASONE SOD PHOSPHATE 4 MG/ML 1 ML VIAL IV ONE; -LACTATED RINGERS 1,000 ML IV SCH; -LIDOCAINE 1% (10MG/ML) FOR IV START INTRADERMA PRN; -ONDANSETRON 4 MG/2 ML VIAL IVP ONE; +TRANEXAMIC 1,000 MG/100ML-NACL 1,000 MG in SALINE 1 100ML.BAG IVPB PRN
[2025-01-08] MEDS: IV FLUID CONTINUATION 1,000 ML IV ONE (06:42)
[2025-01-08] MEDS: GABAPENTIN 300 MG CAP PO PRN (06:44)
[2025-01-08] MEDS: ACETAMINOPHEN TAB 500 MG TAB PO PRN (06:44)
[2025-01-08] MEDS: MELOXICAM 7.5 MG TAB PO PRN (06:44)
[2025-01-08] MEDS: ONDANSETRON 4 MG/2 ML VIAL IVP PRN (06:44)
[2025-01-08] MEDS: fentaNYL (PF) 50 MCG/ML 2 ML AMP IVP PRN (07:01)
[2025-01-08] MEDS: MIDAZOLAM 2 MG/2 ML VIAL IV ONE (07:01)
[2025-01-08] MEDS: LACTATED RINGERS 1,000 ML IV SCH ×2 (07:20→15:55)
[2025-01-08] MEDS ORDERED: fentaNYL (PF) 50 MCG/ML 2 ML AMP ONE (07:25)
[2025-01-08] MEDS ORDERED: PROPOFOL 10 MG/ML 20 ML VIAL IV ONE (07:25)
[2025-01-08] MEDS ORDERED: KETAMINE HCL IN 0.9 % NACL 50 MG/5 ML SYRINGE ONE (07:25)
[2025-01-08] MEDS ORDERED: ROPIVACAINE 5 MG/ML 30 ML VIAL ONE (07:25)
[2025-01-08] MEDS ORDERED: GLYCOPYRROLATE 0.2 MG/ML 2 ML VIAL ONE (07:25)
[2025-01-08] MEDS ORDERED: diphenhydrAMINE 50 MG/ML 1 ML VIAL ONE (07:25)
[2025-01-08] MEDS ORDERED: SODIUM CHLORIDE 0.9% (PF) 10 ML VIAL ONE (07:25)
[2025-01-08] MEDS ORDERED: LIDOCAINE 1% INJ 10MG/ML (20 ML MDV) ONE (07:25)
[2025-01-08] MEDS ORDERED: HYDROmorphone (PF) 1 MG/ML ONE (07:25)
[2025-01-08] MEDS ORDERED: TRANEXAMIC 1,000 MG/100ML-NACL PREMIX BAG ONE (07:25)
[2025-01-08] MEDS ORDERED: MIDAZOLAM 2 MG/2 ML VIAL ONE (07:25)
[2025-01-08] MEDS: ceFAZolin 1,000 MG in SODIUM CHLORIDE 0.9% 1,000 ML IRRIGATION ONE (07:30)
[2025-01-08] MEDS: LACTATED RINGERS 1,000 ML IV ONE (08:30)
--- NOTE | 2025-01-08 08:57 | P.ANPRN ---
Procedure Note - Anesthesia - Nerve Block Performed Left Sammick Single Time Out Performed: Yes ([id number]) Date of Procedure: 01/08/25 Procedure Start Time: Procedure Stop Time: Location of Patient: PreOp Indication: Acute Post-Operative Pain, Requested by Surgeon Specifically requested for management of pain by DrShayne: Carlos Kaplan Sedation Type: Sedate with meaningful contact maintained Preparation: Sterile Prep Position: Supine Catheter: None Needle Types: Pajunk Needle Gauge: 21 Ultrasound used to visualize needle placement: Yes Ultrasound used to observe medication spread: Yes Injectate: 0.5% Ropivacaine (see comment for volume) (15cc+10cc nacl pf) Blood Aspirated: No Pain Paresthesia on Injection Noted: No Resistance on Injection: Normal Image Stored and Saved: Yes Events: Uneventful and Well Tolerated
--- NOTE | 2025-01-08 08:57 | P.ANPRN ---
Procedure Note - Anesthesia - Nerve Block Performed Left Adductor Canal Infusion Time Out Performed: Yes (699) Date of Procedure: 01/08/25 Procedure Start Time: : Procedure Stop Time: :06 Location of Patient: PreOp Indication: Acute Post-Operative Pain, Requested by Surgeon Specifically requested for management of pain by DrShayne: Carlos Kaplan Sedation Type: Sedate with meaningful contact maintained Preparation: Sterile Prep, Sterile Dressing Position: Supine Catheter Depth at Skin (cm): 8 Catheter: None Needle Types: Pajunk Needle Gauge: 18 Ultrasound used to visualize needle placement: Yes Ultrasound used to observe medication spread: Yes Injectate: 0.5% Ropivacaine (see comment for volume) (15cc+10cc nacl pf) Blood Aspirated: No Pain Paresthesia on Injection Noted: No Resistance on Injection: Normal Image Stored and Saved: Yes Events: Uneventful and Well Tolerated
[2025-01-08] MEDS ORDERED: NALOXONE 0.4 MG/ML 1 ML VIAL IV PRN (09:55)
[2025-01-08] MEDS ORDERED: MAGNESIUM HYDROXIDE 2,400 MG/30 ML CUP PO PRN (09:55)
[2025-01-08] MEDS ORDERED: NA PHOS,M-B/NA PHOS,DI-BA 133 ML ENEMA RECTAL PRN (09:55)
[2025-01-08] MEDS ORDERED: ACETAMINOPHEN TAB 325 MG TAB PO PRN (09:55)
[2025-01-08] MEDS ORDERED: traMADol 50 MG TAB PO PRN (09:55)
[2025-01-08] MEDS ORDERED: HYDROmorphone 0.5 MG/0.5 ML SYRINGE IVP PRN ×2 (09:55)
[2025-01-08] MEDS ORDERED: HYDROcodone/APAP 7.5-325MG 1 EACH TAB PO PRN (09:59)
[2025-01-08] MEDS: HYDROmorphone 0.5 MG/0.5 ML SYRINGE IVP PRN ×2 (10:08→13:50)
[2025-01-08] MEDS: ROPIVACAINE 1,100 MG, SODIUM CHLORIDE 0.9% 500 ML 330 ML, EMPTY PAIN BALL 1 EACH MISCELLANE PRN (10:17)
--- NOTE | 2025-01-08 10:30 | XR ---
EXAMINATION TYPE: XR knee limited LT DATE OF EXAM: 01/08/2025 10:09 AM COMPARISON: None CLINICAL INDICATION: Female, 74 years old with history of POST SURGICAL; [facility], pain TECHNIQUE: 2 views FINDINGS: Images show placement of left total knee arthroplasty. Both distal femoral and proximal tibial compon ents of the prosthesis are well seated without periprosthetic fracture. Alignment grossly anatomic. A nterior soft tissue swelling with scattered soft tissue air as well as intra-articular air related to recent operation. IMPRESSION: Uncomplicated postoperative appearance left total knee arthroplasty. [facility], Work[facility], 01/08/2025 10:27 AM
--- NOTE | 2025-01-08 12:26 | P.CONS ---
History of Present Illness - Reason for Consult Consult date: 01/08/25 - Chief Complaint Left knee pain postoperatively. - History of Present Illness This is a 74-year-old white female with known history of hypertension and glaucoma who essentially had significant knee pain. The patient is not here for total knee arthroplasty. Seen immediately postoperatively. Pain is well- controlled. No new complaints she is alert oriented. No significant anesthesia side effects noted. Vital signs are noted. No fever or chills Review of Systems Constitutional: Denies chills, Denies fever Eyes: denies blurred vision, denies pain Ears, nose, mouth and throat: Denies headache, Denies sore throat Cardiovascular: Denies chest pain, Denies shortness of breath Gastrointestinal: Denies abdominal pain, Denies diarrhea, Denies nausea, Denies vomiting Genitourinary: Denies dysuria, Denies hematuria Musculoskeletal: Reports as per HPI Musculoskeletal: left: knee pain Integumentary: Denies pruritus, Denies rash Past Medical History Past Medical History: Deep Vein Thrombosis (DVT), Fibromyalgia, GERD/Reflux, Hyperlipidemia, Mitral Valve Prolapse (MVP), Osteoarthritis (OA) Additional Past Medical History / Comment(s): hx OCCASIONAL VERTIGO, , ENVIRONMENTAL ALLERGIES, IBS, DIVERTICULOSIS, OVER-ACTIVE BLADDER. , DRY EYES., glaucoma, varicose veins, hx hiatal hernia, chronic back pain:degenerative disk disease, spurs on spine, collapsed disks, spondolysis, scoliosis, spinal stenosis, kdiney stones, past hx frequent UTI's, blood in urine, Fuch's dystrophy of sukh eyes,DVT left calf 2019 after prolong sitting-taking eliquis History of Any Multi-Drug Resistant Organisms: None Reported Past Surgical History: Appendectomy, Section, Hysterectomy, Joint Replacement, Orthopedic Surgery Additional Past Surgical History / Comment(s): VAGINAL CYST, D & Cs ,SUKH ROTATOR CUFF, TRABECULOPLASTY RT EYE SURGERY FOR GLAUCOMA, SUKH CATARACTS & LAZER EYE SURGERY , LEFT TRIGGER THUMB, ARTHROSCOPY LEFT KNEE,Sukh EYE LID PTOSIS SURGERY, COLONOSCOPY , mult EPIDURAL INJECTIONS AND RADIOFREQUENCY/BACK PROCEDURES. Right eye bleb surgery x2, rt knee replacement,rt eye retinal transplant,sukh rot cuff,kidney stone proc Past Anesthesia/Blood Transfusion Reactions: Motion Sickness, Postoperative Nausea & Vomiting (PONV) Additional Past Anesthesia/Blood Transfusion Reaction / Comm: "retching" after general anesthesia-scopolamine patch worked well. no hx blood transfusion Smoking Status: Never smoker - Past Family History Daughter(s) Family Medical History: Cancer Additional Family Medical History / Comment(s): MELANOMA Medications and Allergies Home Medications Medication Instructions Recorded Confirmed Type Ascorbic Acid [Vitamin C] 1,000 mg PO DAILY 11/08/16 01/08/25 History Atorvastatin [Lipitor] 20 mg PO HS 11/08/16 01/08/25 History Gabapentin [Neurontin] 300 mg PO BID 11/08/16 01/08/25 History Omeprazole [PriLOSEC] 20 mg PO HS 11/08/16 01/08/25 History nadoloL [Corgard] 20 mg PO HS 11/08/16 01/08/25 History Apixaban [Eliquis] 5 mg PO BID #60 tab 02/05/19 01/08/25 Rx Montelukast [Singulair] 10 mg PO HS 02/05/19 01/08/25 History Vitamin B Complex 1 cap PO DAILY 02/05/19 01/08/25 History traMADol HCL [Ultram] 50 mg PO QID PRN 02/05/19 01/08/25 History Cholecalciferol (Vitamin D3) 125 mcg PO DAILY 08/21/20 01/08/25 History [Vitamin D3 (5000 Iu)] Glucos Sul 2Kcl/MSM/Chond/C/Mn 2 tab PO BID-W/MEALS 08/21/20 01/08/25 History [Glucosamine Chondroitin Cap] Retaine Eye Drops 1 drop BOTH EYES BID 08/23/20 01/08/25 History Acetaminophen [Tylenol Extra 500 mg PO QID PRN 01/02/25 01/08/25 History Strength] Bimatoprost [Lumigan 0.01% Ophth 1 drop BOTH EYES HS 01/02/25 01/08/25 History Soln] Cetirizine HCl [Zyrtec] 10 mg PO QAM 01/02/25 01/08/25 History FLUoxetine HCL [PROzac] 20 mg PO QAM 01/02/25 01/08/25 History Sodium Chloride 5% Ophth Oint 1 applic LEFT EYE BID 01/02/25 01/08/25 History [Raffaele 128] Timolol 0.5% Ophth Soln [Timoptic 1 drop BOTH EYES BID 01/02/25 01/08/25 History 0.5% Ophth Soln] Vibegron [Gemtesa] 75 mg PO HS 01/02/25 01/08/25 History prednisoLONE ACETATE 1% OPHTH 1 drops RIGHT EYE TUFR 01/02/25 01/08/25 History [Pred Forte 1%] Theralith-Xl 2 cap PO BID 01/06/25 01/08/25 History Allergies Allergy/AdvReac Type Severity Reaction Status Date / Time adhesive Allergy Unknown Red Verified 01/08/25 06:28 irritated skin with ekg electrodes. adhesive tape Allergy Unknown Red Verified 01/08/25 06:28 irritated skin nickel Allergy Unknown Rash/Hives Verified 01/08/25 06:28 strawberry Allergy Unknown Tongue and Verified 01/08/25 06:28 lips feel picky titanium Allergy Unknown Rash/Hives Verified 01/08/25 06:28 bandaids Allergy Rash/Hives Uncoded 01/08/25 06:28 Physical Exam Vitals: Vital Signs Temp Pulse Resp BP Pulse Ox 01/08/25 11:11 59 L 16 151/72 97 01/08/25 10:56 58 L 16 167/80 96 01/08/25 10:41 52 L 16 165/84 96 01/08/25 10:26 58 L 16 167/88 96 01/08/25 10:11 68 16 182/91 99 01/08/25 09:56 67 16 157/92 100 01/08/25 09:41 97 F L 68 15 144/86 99 01/08/25 07:15 69 18 153/80 98 01/08/25 07:05 68 16 146/66 95 01/08/25 06:58 65 16 157/83 98 01/08/25 06:36 96.4 F L 70 16 159/82 98 Intake and Output 01/07/25 01/08/25 01/08/25 22:59 06:59 14:59 Intake Total 500 951 Output Total 100 Balance 500 851 Intake: IV 500 951 Output: Estimated Blood Loss 100 Other: Weight 89.9 kg - Constitutional General appearance: no acute distress - EENT Eyes: EOMI - Neck Neck: no lymphadenopathy - Cardiovascular Rhythm: regular Heart sounds: normal: S1, S2 Abnormal Heart Sounds: no S3 Gallop - Gastrointestinal General gastrointestinal: soft, no tenderness - Neurologic Neurologic: CNII-XII intact - Psychiatric Psychiatric: A&O x's 3 Assessment and Plan (1) Fibromyalgia Current Visit: No Status: Acute Code(s): M79.7 - FIBROMYALGIA SNOMED Code(s): 807144541 (2) Hypertension Current Visit: No Status: Acute Code(s): I10 - ESSENTIAL (PRIMARY) HYPERTENSION SNOMED Code(s): 45463885 (3) Osteoarthritis of right knee Current Visit: No Status: Acute Priority: Medium Code(s): M17.11 - UNILATERAL PRIMARY OSTEOARTHRITIS, RIGHT KNEE SNOMED Code(s): 789863862055897 Plan: Restart home medications. Hold Eliquis until cleared by orthopedics. Pain control per surgery. Watch blood pressure closely. DVT protocols. See orders otherwise. The patient is a full code
--- NOTE | 2025-01-08 15:52 | OP ---
OPERATIVE REPORT DATE OF SERVICE : 01/08/2025 SHOP TECH: Brady Verde PA-C PREOPERATIVE DIAGNOSIS: Left knee osteoarthrosis. POSTOPERATIVE DIAGNOSIS: Left knee osteoarthrosis. OPERATION: Left total knee arthroplasty. ANESTHESIA: Spinal with sedation. ESTIMATED BLOOD LOSS: 100 mL. TOURNIQUET TIME: 52 minutes at 250 mmHg. COMPLICATIONS: None apparent. DRAINS: None. DISPOSITION: Postanesthesia Care Unit. INDICATIONS: Rosa Isela is a pleasant 74-year-old female with longstanding history of left knee pain. History and physical examination are consistent with advanced left knee osteoarthrosis. She has been through significant operative management up to this point. Further treatment options were discussed, and she decided to go forward with the left total knee arthroplasty. Risks of procedure were discussed with her in detail. These risks include, but are not limited to risk of infection, nerve damage, bleeding, pain, and a small risk of deep vein thrombosis, which could lead to fatal pulmonary embolism. There is also small risk of loosening of the implant, which could require revision of operation. Of note, she does have a noted nickel allergy. We did plan to utilize the Murtaza Tivanium implants as a result of that. The patient understood the risks. All of her questions with regard to the procedure were answered to her satisfaction. Appropriate informed consent was obtained. DESCRIPTION OF PROCEDURE: The patient was identified in the preoperative holding area. Surgical site was marked by both the patient and myself. She was given 2 g of Ancef IV prophylactic purposes. She was then transported to the operative suite. She was placed supine on the operating table. Spinal anesthetic was then administered and dosed per the Anesthesia Department without apparent complication. Examination under anesthesia was then performed. The patient has 2 to 3 degrees shy of full extension. She had 100 degrees of flexion of the medial collateral ligament and lateral collateral ligament. Posterior cruciate ligaments were stable. A tourniquet was then placed high on the left upper extremity, well-padded in preparation for surgery. The patient's left lower extremity was then prepped and draped in usual sterile fashion. Standard surgical pause was undertaken to ensure that we were operating the correct site and appropriate preoperative antibiotics were given. All staff in the room were in agreement, and we proceeded. The outlines of the patella marked with a surgical pen. A planned 12 cm vertical incision centered over the patella was marked with a surgical pen. Leg was then exsanguinated with an Esmarch dressing. The knee was then flexed, and tourniquet was inflated to 250 mmHg. Total tourniquet time for the procedure was 52 minutes. Incision was then made with a 10-blade scalpel. Dissection was carried down sharply to the overlying fascia. Great care was taken to minimize the skin flaps. The knee was then exposed using a standard medial parapatellar approach. A small cuff of quadriceps tendon was then left for suturing. She was in a bit of valgus preoperatively. A minimal medial release was made. This was done just enough to place the medial retractor. The medial meniscus was then excised as well. The left lateral meniscus was also released anteriorly. The leg was then externally rotated. The patella was everted and the knee was flexed. Retractors were then placed to protect the collateral ligaments. I then proceeded to remove the infrapatellar fat pad. This was excised sharply tangentially with fibers of the patellar tendon. I then proceeded to remove the peripheral osteophytes. This was done a rongeur. I then proceeded with the distal femoral resection. She did have near full extension. A planned 9 mm resection was then done. The femoral canal was then entered in midline. The femur approximately 10 mm anterior to the origin of the posterior cruciate ligament. The ayleen was then advanced down the center of the femur and placed intramedullary. Based on the preoperative radiographs, the angle between the anatomic and mechanical axis of the femur was approximately 4 to 5 degrees. The valgus angle of the distal femoral cutting guide was then set at 4 degrees for the left knee. The distal femoral cutting guide was then advanced over the intramedullary ayleen. This was seated firmly against the femur. I then as mentioned planned to take 9 mm off the distal femur. The cutting block was then secured onto the femur with pins. The jig was then removed. The distal cut was made through the slot of the block. The pins were then removed and the distal cutting block was removed. The accuracy of the distal cuts was checked with 2 flat bars. I then proceeded with femoral sizing. Posterior referencing sizing guide was held firmly against the resected distal surface of the femur. The posterior condyles were resting on the posterior plane of the guide. The sizing guide was then placed on the anterior femur. The size was measured as a size 7. I then assessed for femoral rotation. Plan was for 3 degrees of external rotation. Three degrees of external rotation was placed onto the jig. These holes were then marked. I then confirmed the rotation by 3 separate methods. This was done using epicondylar axis as well as Whitesides line and posterior referencing. It was deemed that the external rotation was proper. I then went forward and placed the femoral cutting block. This was placed over the previously placed pin holes. The Robson wing was then placed onto the anterior slots to ensure that we would not notch the anterior femur with the anterior femoral cut. I then proceeded with the anterior femoral cut. This was flush with the anterior cortex of the femur. The posterior cuts were then made followed by the anterior chamfer cut, then the posterior chamfer cut. The cutting block was then removed. Throughout the resection, the collateral ligaments were protected with retractors. I then placed a trial size 7 femur. It fit very nice mediolateral and fit flush with the distal end of the femur. The drill holes were then made. I then proceeded with the tibial cut. I planned for cruciate retaining knee. The guide was placed and set for varus valgus and for slope. Height was set for approximate 2 mm resection from the lateral tibial plateau, which was the lower side. I was happy with the alignment and amount of resection, the cutting block was then pinned to the proximal tibia. The alignment ayleen was removed and the proximal tibia was resected with a reciprocating saw. Again, this was done with retractors protecting the collateral ligaments as well as the posterior cruciate ligament. I then proceeded to evaluate the flexion extension gaps. A 10 mm block was then placed. The flexion extension gaps were equal. I then proceeded with resection of posterior osteophytes. She had fairly extensive posterior osteophytes. This was done using a curved osteotome. This resected the posterior osteophytes, and the posterior capsular stripping was done off the posterior aspect of the femur at this time. The osteophytes were then removed. I then proceeded with resection of the patella. The thickness of the patella was measured using the caliper. The thickness was 22 mm. The thickness of the anticipated patellar dome was taken into account. Resection was then performed and confirmed to be equal in 4 quadrants using a caliper. Approximately 14 mm of bone remained after resection. A 29 x 8 standard patellar trial was then placed. The holes were drilled. The trial was then placed. I then proceeded with sizing tibial plate. A size C tibial plate fit very nicely. I then placed the trial femur, the tibial tray, and the patellar button. A 10 mm trial tibial insert was also placed. The components fit very nicely. She had full extension and flexion. The extension and flexion gaps were equal and stable to both varus and valgus stress. The patella tracked appropriately. The tibial tray rotation was then marked with a Bovie. This was externally rotated properly. I then proceeded with tibial preparation. I first drilled the femoral holes and removed the femoral component. The tibial tray was then set for proper external rotation as well as medial lateral placement onto the tibia. It was then pinned in place. I then proceeded with punching the keel. I then decided to proceed with cementing of all our components. The knee was thoroughly irrigated with sterile saline solution via pulse lavage. The lateral geniculate artery was identified and cauterized. All blood was removed from the bone of the tibia, femur, and patella with pulsed lavage. I then proceeded with cementing. Two packs of antibiotic bone cement prepared on the back table by director medical surgical. I then proceeded with cementing the tibia 1st. The cement was impacted in the keel as well as deeply seated into the bone. A second coat of cement was then placed. The tibia was then impacted into place. Excess cement was removed with Kristal's and jokers. I then proceeded with cementing of the femoral component. The femoral component was also cemented using standard technique. Excess cement was removed. A 10 mm trial insert was then placed into the knee. It was brought into full extension with a constant axial load placed until the cement had hardened. The patellar component was then cemented. This held firmly with the compressive device until the cement had dried. When the cement had dried, the knee was taken out of extension. All excess cement was removed from around the prosthesis. I then trialed the knee with a 10 mm insert. Flexion and extension gaps were appropriate. The knee was stable. It came into full extension. I decided to go forward with the 10 mm medial congruent cross-linked cruciate-retaining tibial insert. The polyethylene was then placed on the tibial tray and locked into place. The knee was then reduced. The knee was again further irrigated with sterile saline solution with antibiotic added. The tourniquet was then deflated. Total tourniquet time procedure was 52 minutes at 250 mmHg. Final components were a Murtaza Persona size 7 Tivanium cruciate-retaining femoral component, a size C tibial tray, a 10 mm medial congruent cruciate-retaining polyethylene insert, and a 29 x 8 mm patella. I then proceeded with closure. Again, the knee was thoroughly irrigated. The quadriceps tendon and medial retinacular were reapproximated with #2 Ethibond suture. The extensor mechanism was then closed with a running #2 Quill suture. Subcutaneous tissues were closed with 2-0 Vicryl interrupted suture. The skin was closed with a running 3-0 Quill suture. Dermabond was applied to the incision. Sterile compressive dressings were applied. All sponge and needle counts were deemed correct prior to closure. The patient tolerated the procedure without apparent complication. She was transferred to recovery room in stable condition. MMODL / IJN: [id number] /
[2025-01-08] MEDS: HYDROcodone/APAP 7.5-325MG 1 EACH TAB PO PRN (15:53)
[2025-01-08] MEDS ORDERED: NON FORMULARY DRUG (Glucos Sul 2kcl/Msm/Chond/C/Mn [Glucosamine Chondroitin Cap] 1 EACH Ca PO SCH (17:30)
[2025-01-08] MEDS: ATORVASTATIN 20 MG TAB PO SCH (19:56)
[2025-01-08] MEDS: PANTOPRAZOLE 40 MG TABLET PO SCH (19:56)
[2025-01-08] MEDS: MONTELUKAST 10 MG TAB PO SCH (19:56)
[2025-01-08] MEDS: ASPIRIN 81 MG PO SCH (19:56)
[2025-01-08] MEDS: SENNOSIDES-DOCUSATE SODIUM 1 EACH TAB PO SCH (19:56)
[2025-01-08] MEDS: ARTIFICIAL TEARS-HYPROMELLOSE DROPS 15 ML BTL BOTH EYES SCH (19:57)
[2025-01-08] MEDS: TIMOLOL 0.5% OPHTH DROPS 5 ML BTL BOTH EYES SCH (19:58)
[2025-01-08] MEDS: SODIUM CHLORIDE 5% OPHTH OINT 3.5 GM TUBE LEFT EYE SCH (19:59)
[2025-01-08] MEDS: LATANOPROST 0.005% OPHTH DROPS 2.5 ML BTL BOTH EYES SCH (20:00)
[2025-01-08] MEDS: NON FORMULARY DRUG (Vibegron [Gemtesa] 75 MG Tablet) PO SCH (20:03)
[2025-01-09] MEDS: ONDANSETRON 4 MG/2 ML VIAL IVP PRN (00:48)
[2025-01-09 07:51] LABS: HCT 41.9 % (37.2-46.3); HGB 13.7 g/dL (12.0-15.0); MCH 32.4 pg (27.0-32.0); MCHC 32.7 g/dL (32.0-37.0); MCV 99.1 FL (80.0-97.0); NRBC Per 100 WBC 0 X 10*3/uL (0.00-0.01); Platelet Count 209 X 10*3/uL (140-440); RBC 4.23 X 10*6/uL (4.10-5.20); RDW 12.2 % (11.5-14.5); WBC 13.68 X 10*3/uL (4.50-10.00)
[2025-01-09] MEDS: LORATADINE 10 MG TAB PO SCH (08:12)
[2025-01-09] MEDS: ASCORBIC ACID 500 MG TAB PO SCH (08:12)
[2025-01-09] MEDS: CHOLECALCIFEROL 125 MCG (5000 IU) TABLET PO SCH (08:12)
[2025-01-09] MEDS: FOLIC ACID-VIT B COMPLEX-VIT C 1 CAP PO SCH (08:13)
[2025-01-09] MEDS: prednisoLONE ACETATE 1% OPHTH DROPS 5 ML BTL RIGHT EYE SCH (08:18)
[2025-01-09 08:25] VITALS: BP 153/81; PULSE 64; RESP 16; TEMP 99.1
--- NOTE | 2025-01-09 08:41 | P.PN ---
Subjective Progress Note Date: 01/09/25 Principal diagnosis: Post left knee arthroplasty He is complaining of chronic back pain. Medications have been reconciled. Pain control is otherwise nominal for the knee. No voiding difficulties low-grade fever stated Objective - Vital Signs Vital signs: Vital Signs Temp 99.1 F 01/09/25 07:46 Pulse 64 01/09/25 07:46 Resp 16 01/09/25 07:46 BP 153/81 01/09/25 07:46 Pulse Ox 94 L 01/09/25 07:46 FiO2 Intake & Output 01/08/25 01/09/25 01/09/25 18:59 06:59 18:59 Intake Total 1001 540 Output Total 100 Balance 901 540 Weight 89.9 kg Intake: IV 951 Intake, IV Titration 50 Amount ceFAZolin 2 gm In Sodium 50 Chloride 0.9% 50 ml @ 100 mls/hr IVPB Q8HR ALEXSANDRA Rx# :[id number] Oral 540 Output: Estimated Blood Loss 100 Other: # Voids 2 4 1 - Constitutional General appearance: Present: average body habitus, cooperative. Absent: no acute distress - EENT Eyes: Absent: abnormal pupil - Neck Neck: Absent: lymphadenopathy - Respiratory Respiratory: bilateral: diminished - Cardiovascular Rhythm: regular Heart sounds: normal: S1, S2 Abnormal Heart Sounds: Absent: S3 Gallop - Gastrointestinal General gastrointestinal: Present: soft. Absent: tenderness - Neurologic Neurologic: Present: CNII-XII intact - Labs CBC & Chem 7: 01/09/25 04:29 Labs: Abnormal Lab Results - Last 24 Hours (Table) 01/09/25 Range/Units 04:29 WBC 13.68 H (4.50-10.00) X 10*3/uL MCV 99.1 H (80.0-97.0) FL MCH 32.4 H (27.0-32.0) pg Assessment and Plan (1) Fibromyalgia Current Visit: No Status: Acute Code(s): M79.7 - FIBROMYALGIA SNOMED Code(s): 245248030 (2) Hypertension Current Visit: No Status: Acute Code(s): I10 - ESSENTIAL (PRIMARY) HYPERTENSION SNOMED Code(s): 64667897 (3) Osteoarthritis of right knee Current Visit: No Status: Acute Priority: Medium Code(s): M17.11 - UNILATERAL PRIMARY OSTEOARTHRITIS, RIGHT KNEE SNOMED Code(s): 099513871012023 Plan: Restart home medications. Hold Eliquis until cleared by orthopedics. Pain control per surgery. Watch blood pressure closely. DVT protocols. See orders otherwise. The patient is a full code
[2025-01-09] MEDS: APIXABAN 5 MG TAB PO SCH (08:42)
[2025-01-09] MEDS: GABAPENTIN 300 MG CAP PO SCH (08:42)
[2025-01-09 09:21] LABS: Basophils # (A) 0.04 X 10*3/uL (0.00-0.10); Basophils % (A) 0.3 %; Eosinophils # (A) 0.03 X 10*3/uL (0.04-0.35); Eosinophils % (A) 0.2 %; Immature Grans, Automated 0.40 %; Lymphocytes # (A) 1.19 X 10*3/uL (0.90-5.00); Lymphocytes % (A) 8.7 %; Monocytes # (A) 1.61 X 10*3/uL (0.20-1.00); Monocytes % (A) 11.8 %; Neutrophils # (A) 10.76 X 10*3/uL (1.80-7.70); Neutrophils % (A) 78.6 %
--- NOTE | 2025-01-09 11:19 | P.DS ---
Providers Expected date of discharge: 01/09/25 Attending physician: Carlos Kaplan Consults: 01/08/25 09:55 Consult Physician Routine Consulting Provider: Yunior Melendez Consult Reason/Comments: post op medical management Do you want consulting provider notified?: Yes Primary care physician: Yunior Melendez - Discharge Diagnosis(es) (1) Osteoarthritis of left knee Patient was admitted to the OR on 01/08/25 to undergo a left total knee arthroplasty. She had failed conservative measures as an outpatient and desired to proceed with elective surgery after given informed consent. She underwent the above procedure which she tolerated well without complication. Postoperative hospital course has remained without complication. On day of discharge she is afebrile, vital signs stable, labs within acceptable ranges, tolerating by mouth meds and diet, voiding without difficulty, positive flatus, denies abdominal pain or calf pain, pain is controlled on oral pain medication and has no new complaints. Wound is benign, neurovascular status is intact, calf is soft and nontender, abdomen soft and nontender. Review of systems is negative for numbness, tingling, fever, chills, chest pain, shortness of breath, nausea, vomiting, dizziness, headaches, slurred speech or other. Current Visit: Yes Status: Acute Priority: Medium Procedures: Left TKA Patient Condition at Discharge: Good Plan - Discharge Summary Discharge Rx Participant: No New Discharge Prescriptions: New Ondansetron [Zofran] 4 mg PO Q8HR PRN #21 tab PRN Reason: Nausea Docusate [Colace] 100 mg PO BID #60 capsule HYDROcodone/APAP 7.5-325MG [Kincaid 7.5-325] 1 - 2 tab PO Q6HR PRN #32 tab PRN Reason: Pain No Action Ascorbic Acid [Vitamin C] 1,000 mg PO DAILY Omeprazole [PriLOSEC] 20 mg PO HS nadoloL [Corgard] 20 mg PO HS Atorvastatin [Lipitor] 20 mg PO HS Gabapentin [Neurontin] 300 mg PO BID traMADol HCL [Ultram] 50 mg PO QID PRN PRN Reason: Pain Montelukast [Singulair] 10 mg PO HS Vitamin B Complex 1 cap PO DAILY Apixaban [Eliquis] 5 mg PO BID #60 tab Cholecalciferol (Vitamin D3) [Vitamin D3 (5000 Iu)] 125 mcg PO DAILY Glucos Sul 2Kcl/MSM/Chond/C/Mn [Glucosamine Chondroitin Cap] 2 tab PO BID- W/MEALS Retaine Eye Drops 1 drop BOTH EYES BID prednisoLONE ACETATE 1% OPHTH [Pred Forte 1%] 1 drops RIGHT EYE TUFR Bimatoprost [Lumigan 0.01% Ophth Soln] 1 drop BOTH EYES HS Acetaminophen [Tylenol Extra Strength] 500 mg PO QID PRN PRN Reason: Pain FLUoxetine HCL [PROzac] 20 mg PO QAM Vibegron [Gemtesa] 75 mg PO HS Timolol 0.5% Ophth Soln [Timoptic 0.5% Ophth Soln] 1 drop BOTH EYES BID Sodium Chloride 5% Ophth Oint [Raffaele 128] 1 applic LEFT EYE BID Cetirizine HCl [Zyrtec] 10 mg PO QAM Theralith-Xl 2 cap PO BID Discharge Medication List Ascorbic Acid [Vitamin C] 1,000 mg PO DAILY 11/08/16 [History] Atorvastatin [Lipitor] 20 mg PO HS 11/08/16 [History] Gabapentin [Neurontin] 300 mg PO BID 11/08/16 [History] Omeprazole [PriLOSEC] 20 mg PO HS 11/08/16 [History] nadoloL [Corgard] 20 mg PO HS 11/08/16 [History] Apixaban [Eliquis] 5 mg PO BID #60 tab 02/05/19 [Rx] Montelukast [Singulair] 10 mg PO HS 02/05/19 [History] Vitamin B Complex 1 cap PO DAILY 02/05/19 [History] traMADol HCL [Ultram] 50 mg PO QID PRN 02/05/19 [History] Cholecalciferol (Vitamin D3) [Vitamin D3 (5000 Iu)] 125 mcg PO DAILY 08/21/20 [History] Glucos Sul 2Kcl/MSM/Chond/C/Mn [Glucosamine Chondroitin Cap] 2 tab PO BID- W/MEALS 08/21/20 [History] Retaine Eye Drops 1 drop BOTH EYES BID 08/23/20 [History] Acetaminophen [Tylenol Extra Strength] 500 mg PO QID PRN 01/02/25 [History] Bimatoprost [Lumigan 0.01% Ophth Soln] 1 drop BOTH EYES HS 01/02/25 [History] Cetirizine HCl [Zyrtec] 10 mg PO QAM 01/02/25 [History] FLUoxetine HCL [PROzac] 20 mg PO QAM 01/02/25 [History] Sodium Chloride 5% Ophth Oint [Raffaele 128] 1 applic LEFT EYE BID 01/02/25 [History] Timolol 0.5% Ophth Soln [Timoptic 0.5% Ophth Soln] 1 drop BOTH EYES BID 01/02/25 [History] Vibegron [Gemtesa] 75 mg PO HS 01/02/25 [History] prednisoLONE ACETATE 1% OPHTH [Pred Forte 1%] 1 drops RIGHT EYE TUFR 01/02/25 [History] Theralith-Xl 2 cap PO BID 01/06/25 [History] Docusate [Colace] 100 mg PO BID #60 capsule 01/09/25 [Rx] HYDROcodone/APAP 7.5-325MG [Kincaid 7.5-325] 1 - 2 tab PO Q6HR PRN #32 tab 01/09/25 [Rx] Ondansetron [Zofran] 4 mg PO Q8HR PRN #21 tab 01/09/25 [Rx] Follow up Appointment(s)/Referral(s): Carlos Kaplan MD [STAFF PHYSICIAN] - 10 Days Activity/Diet/Wound Care/Special Instructions: [facility]: #[phone] Weight bear as tolerated May shower after 3 days if no bleeding Keep wound clean and dry Take meds as directed F/U with Dr. Kaplan in office Discharge Disposition: HOME WITH HOME HEALTH SERVICES
--- NOTE | 2025-01-09 11:49 | P.PN ---
Progress Note - Text Adequate analgesia. No anesthetic complications.
[2025-01-09] MEDS ORDERED: MULTIVITAMINS, THERA 1 EACH TAB PO SCH (12:00)
== END 2025-01-09 13:28 | disposition home health service (06) ==
LOC: OR 05:46 → 4SSUR 11:11 → OR 01-09 13:28
PROVIDERS: ATTEND Orthopaedic Surgery Sports Medicine
DX: M17.12 Unilateral primary osteoarthritis, left knee (principal); M79.7 Fibromyalgia; I34.1 Nonrheumatic mitral (valve) prolapse; E78.5 Hyperlipidemia, unspecified; I10 Essential (primary) hypertension; K58.9 Irritable bowel syndrome, unspecified; L23.1 Allergic contact dermatitis due to adhesives; L23.0 Allergic contact dermatitis due to metals; Z86.718 Personal history of other venous thrombosis and embolism; Z90.49 Acquired absence of other specified parts of digestive tract; Z90.710 Acquired absence of both cervix and uterus; Z96.653 Presence of artificial knee joint, bilateral; Z79.01 Long term (current) use of anticoagulants; Z79.899 Other long term (current) drug therapy
CPT/HCPCS: 97161; 64448; 64473; 85025; 73560; 27447; C1776; C1713; C1751; J2250; J0690 ×2; J2405 ×2; J3010; J2795; J1171 ×2